=== PATIENT | male | born 1960 | race Caucasian/White ===

== ENCOUNTER 2018-04-28 13:27 | Emergency (ER) | payer SELFPAY ==
[2018-04-28 13:31] VITALS: BP 151/81; PULSE 89; RESP 16; TEMP 37; O2SAT 97
--- NOTE | 2018-04-28 13:35 | W.ED.GENAD ---
Discharge Plan Disposition Patient Disposition: HOME Condition: Stable Discharge Details Chief Complaint: Orthopedic Clinical Impression: Right knee sprain Primary Care Provider: Wenceslao Vega ED Provider: Saturnino Mccloud Home Meds and New Rx's Prescriptions: Continued aspirin [Aspir-81] 81 MG tablet,delayed release (DR/EC) 1 tab PO HS RF: 0 Proventil HFA 6.7 GM HFA aerosol inhaler 2 puff Inhalation Q4H PRN Qty: 3 RF: 4 Flovent HFA 12 GM HFA aerosol inhaler 2 puff Inhalation BID Qty: 3 RF: 4 cholecalciferol (vitamin D3) 1,000 UNIT capsule 1,000 unit PO DAILY RF: 0 furosemide 20 MG tablet 20 mg PO DAILY Qty: 90 RF: 3 pravastatin [Pravachol] 40 MG tablet 1 tab PO DAILY Qty: 90 RF: 4 amitriptyline 50 MG tablet 1 tab PO HS Qty: 90 RF: 3 lorazepam [Ativan] 1 MG tablet 1 mg PO HS Qty: 90 RF: 2 losartan 100 MG tablet 100 mg PO DAILY Qty: 90 RF: 3 escitalopram oxalate [Lexapro] 10 MG tablet 1 tab PO DAILY Qty: 90 RF: 4 hemps seed oil 1,000 mg PO TID RF: 0 metoprolol succinate [Toprol XL] 25 MG tablet extended release 24 hr 25 mg PO DAILY Qty: 90 RF: 3 Lyrica 75 mg capsule 75 mg PO HS Qty: 90 RF: 1 lorazepam 1 mg tablet 1 mg PO HS Qty: 60 RF: 1 docusate sodium [Colace] 100 MG capsule 100 mg PO HS PRN RF: 0 cyclobenzaprine 10 MG tablet 10 mg PO TID PRN (Reason: Muscle Spasm) Qty: 10 RF: 0 ibuprofen 800 MG tablet 800 mg PO TID PRN (Reason: Pain) Qty: 15 RF: 0 melatonin 10 MG tablet 10 mg PO DAILY RF: 0 Discharge Instructions Instructions: Knee Sprain (ED) Referrals: Tony Jacques MD [ [facility] STAFF PHYSICIAN] - Medical Decision Making 57 yo male states a month ago he slipped and twisted his right knee then did similar injury a few days later. Denies hitting his knee or other trauma. HAs had pain since so came here. Denies fevers. Has no swelling or redenses or warmth of the knee to suggest infection. Has pain with palpation over the medial joint line of the right knee with full rom, no swelling and intact distal senation and pulses and no calf pain or leg swelling. Suspect knee sprain but could also be meniscus injury, will have him go to orthopedics for an evaluation as an outpatient. Given lack of falling, is bearing weight do not feel xray indicated given unlikely fx Differential Diagnosis contusion, sprain, meniscus injury HPI General Mode of arrival: ambulatory. Date/Time Provider Initiated Documentation: 04/28/18 13:28. Limitations to Documentation: no limitations. Information obtained by: patient. History of Present Illness 57 year old M presents to the emergency department with the chief complaint of right knee pain, described as moderate, with intensity rated at 4. Quality is described as aching, and is localized to the right and lower extremity. Patient started experiencing this month(s) (1) and it has been constant. Rest improves symptom(s), Movement worsens symptoms . Patient notes no other symptoms.. Patient did receive the following treatments prior to arrival, none Related Data Home Medications Medication Instructions Recorded Confirmed Flovent HFA 2 puff INHALATION BID #3 puff 08/07/12 04/28/18 Proventil HFA 2 puff INHALATION Q4H PRN #3 puff 08/07/12 04/28/18 aspirin [Aspir-81] 1 tab PO HS tab-cap 08/07/12 04/28/18 docusate sodium [Colace] 100 mg PO HS PRN 06/29/14 04/28/18 cyclobenzaprine 10 mg PO TID PRN #10 tab 10/19/16 04/28/18 ibuprofen 800 mg PO TID PRN #15 tablet 10/19/16 04/28/18 melatonin 10 mg PO DAILY 10/19/16 04/28/18 cholecalciferol (vitamin D3) 1,000 unit PO DAILY 03/05/17 04/28/18 furosemide 20 mg PO DAILY #90 tab-cap 03/18/17 04/28/18 pravastatin [Pravachol] 1 tab PO DAILY #90 tab-cap 03/28/17 04/28/18 amitriptyline 1 tab PO HS #90 tab 06/24/17 04/28/18 escitalopram oxalate [Lexapro] 1 tab PO DAILY #90 tab-cap 06/24/17 04/28/18 lorazepam [Ativan] 1 mg PO HS #90 tab 06/24/17 04/28/18 losartan 100 mg PO DAILY #90 tab-cap 06/24/17 04/28/18 Hemps Seed Oil 1,000 mg PO TID 09/02/17 04/28/18 metoprolol succinate [Toprol XL] 25 mg PO DAILY #90 tab-cap 09/02/17 04/28/18 pregabalin 75 mg capsule 75 mg PO HS #90 tab-cap 01/23/18 04/28/18 lorazepam 1 mg tablet 1 mg PO HS #60 tab 04/01/18 04/28/18 Previous Rx's Medication Instructions Recorded cyclobenzaprine 10 mg PO TID PRN #10 tab 10/19/16 ibuprofen 800 mg PO TID PRN #15 tablet 10/19/16 furosemide 20 mg PO DAILY #90 tab-cap 03/18/17 pravastatin [Pravachol] 1 tab PO DAILY #90 tab-cap 03/28/17 amitriptyline 1 tab PO HS #90 tab 06/24/17 escitalopram oxalate [Lexapro] 1 tab PO DAILY #90 tab-cap 06/24/17 lorazepam [Ativan] 1 mg PO HS #90 tab 06/24/17 losartan 100 mg PO DAILY #90 tab-cap 06/24/17 metoprolol succinate [Toprol XL] 25 mg PO DAILY #90 tab-cap 09/02/17 pregabalin 75 mg capsule 75 mg PO HS #90 tab-cap 01/23/18 lorazepam 1 mg tablet 1 mg PO HS #60 tab 04/01/18 Allergies Allergy/AdvReac Type Severity Reaction Status Date / Time adhesive Allergy Severe SKIN RASH Unverified 04/28/18 13:37 Penicillins Allergy Unknown Unverified 04/28/18 13:37 hydrochlorothiazide AdvReac Severe CRAMPING Unverified 04/28/18 13:37 zolpidem AdvReac Severe SLEEP Unverified 04/28/18 13:37 WALKING amlodipine AdvReac Intermediate edema Unverified 04/28/18 13:37 General Stated Complaint: Orthopedic ISAURA: 4 Review of Systems Review of Systems All systems reviewed & are unremarkable except as noted in HPI and below Constitutional Denies chills, Denies fever(s) and Denies weakness Cardiovascular Denies chest pain and Denies dyspnea Respiratory Denies dyspnea Gastrointestinal Denies abdominal pain, Denies nausea and Denies vomiting Musculoskeletal Denies joint swelling Neurologic Denies weakness [facility] Surgical History Jennifer Fundoplication (~2001) resection Family History Mother Diabetes Personal history of malignant neoplasm Father Essential hypertension Heart disease Hypercholesterolemia Stroke Sister No problems noted. Sister No problems noted. Brother No problems noted. Brother No problems noted. Son No problems noted. Grandmother Diabetes Personal history of malignant neoplasm Social History Smoking/Tobacco Use Status: Former Tobacco Use Exam Const General: no acute distress Orientation: alert HENMT Head: normal to inspection Ears: external ears normal General nose exam: external nose normal Mouth: moist mucous membranes Eyes General: appearance normal, both eyes and all related structures Neck Neck: normal visual inspection Resp Effort & Inspection: normal respiratory effort and able to speak in complete sentences Cardio Rate: regular rate Skin General skin exam: no rashes or lesions noted Neuro General: alert and oriented x3 Extrem General: normal to inspection Psych Mental Status: mental status grossly normal Course Vital Signs Temperature 37 C 04/28/18 13:31 Pulse 89 04/28/18 13:31 Respiratory Rate 16 04/28/18 13:31 Blood Pressure 151/81 H 04/28/18 13:31 Pulse Oximetry 97 04/28/18 13:31 Temperature 37 C 04/28/18 13:31 Temperature Source Temporal Artery Scan 04/28/18 13:31 Pulse 89 04/28/18 13:31 Respiratory Rate 16 04/28/18 13:31 Respiratory Effort 04/28/18 13:35 Blood Pressure 151/81 H 04/28/18 13:31 Blood Pressure Position Sitting 04/28/18 13:31 Pulse Oximetry 97 04/28/18 13:31 Oxygen Delivery Method Room Air 04/28/18 13:31 Oxygen Flow Rate 0 04/28/18 13:31 Pain Level 4 04/28/18 13:31
--- NOTE | 2018-04-28 13:46 | ED.GENADUL_ITS ---
Discharge Plan Disposition Patient Disposition: HOME Condition: Stable Discharge Details Chief Complaint: Orthopedic Clinical Impression: Right knee sprain Primary Care Provider: Wenceslao Vega ED Provider: Saturnino Mccloud Home Meds and New Rx's Prescriptions: Continued aspirin [Aspir-81] 81 MG tablet,delayed release (DR/EC) 1 tab PO HS RF: 0 Proventil HFA 6.7 GM HFA aerosol inhaler 2 puff Inhalation Q4H PRN Qty: 3 RF: 4 Flovent HFA 12 GM HFA aerosol inhaler 2 puff Inhalation BID Qty: 3 RF: 4 cholecalciferol (vitamin D3) 1,000 UNIT capsule 1,000 unit PO DAILY RF: 0 furosemide 20 MG tablet 20 mg PO DAILY Qty: 90 RF: 3 pravastatin [Pravachol] 40 MG tablet 1 tab PO DAILY Qty: 90 RF: 4 amitriptyline 50 MG tablet 1 tab PO HS Qty: 90 RF: 3 lorazepam [Ativan] 1 MG tablet 1 mg PO HS Qty: 90 RF: 2 losartan 100 MG tablet 100 mg PO DAILY Qty: 90 RF: 3 escitalopram oxalate [Lexapro] 10 MG tablet 1 tab PO DAILY Qty: 90 RF: 4 hemps seed oil 1,000 mg PO TID RF: 0 metoprolol succinate [Toprol XL] 25 MG tablet extended release 24 hr 25 mg PO DAILY Qty: 90 RF: 3 Lyrica 75 mg capsule 75 mg PO HS Qty: 90 RF: 1 lorazepam 1 mg tablet 1 mg PO HS Qty: 60 RF: 1 docusate sodium [Colace] 100 MG capsule 100 mg PO HS PRN RF: 0 cyclobenzaprine 10 MG tablet 10 mg PO TID PRN (Reason: Muscle Spasm) Qty: 10 RF: 0 ibuprofen 800 MG tablet 800 mg PO TID PRN (Reason: Pain) Qty: 15 RF: 0 melatonin 10 MG tablet 10 mg PO DAILY RF: 0 Discharge Instructions Instructions: Knee Sprain (ED) Referrals: Tony Jacques MD [ [facility] STAFF PHYSICIAN] - Medical Decision Making 57 yo male states a month ago he slipped and twisted his right knee then did similar injury a few days later. Denies hitting his knee or other trauma. HAs had pain since so came here. Denies fevers. Has no swelling or redenses or warmth of the knee to suggest infection. Has pain with palpation over the medial joint line of the right knee with full rom, no swelling and intact distal senation and pulses and no calf pain or leg swelling. Suspect knee sprain but could also be meniscus injury, will have him go to orthopedics for an evaluation as an outpatient. Given lack of falling, is bearing weight do not feel xray indicated given unlikely fx Differential Diagnosis contusion, sprain, meniscus injury HPI General Mode of arrival: ambulatory . Date/Time Provider Initiated Documentation: 04/28/18 13:28 . Limitations to Documentation: no limitations . Information obtained by: patient . History of Present Illness 57 year old M presents to the emergency department with the chief complaint of right knee pain, described as moderate, with intensity rated at 4. Quality is described as aching, and is localized to the right and lower extremity. Patient started experiencing this month(s) (1) and it has been constant. Rest improves symptom(s), Movement worsens symptoms . Patient notes no other symptoms.. Patient did receive the following treatments prior to arrival, none Related Data Home Medications Medication Instructions Recorded Confirmed Flovent HFA 2 puff INHALATION BID #3 puff 08/07/12 04/28/18 Proventil HFA 2 puff INHALATION Q4H PRN #3 puff 08/07/12 04/28/18 aspirin [Aspir-81] 1 tab PO HS tab-cap 08/07/12 04/28/18 docusate sodium [Colace] 100 mg PO HS PRN 06/29/14 04/28/18 cyclobenzaprine 10 mg PO TID PRN #10 tab 10/19/16 04/28/18 ibuprofen 800 mg PO TID PRN #15 tablet 10/19/16 04/28/18 melatonin 10 mg PO DAILY 10/19/16 04/28/18 cholecalciferol (vitamin D3) 1,000 unit PO DAILY 03/05/17 04/28/18 furosemide 20 mg PO DAILY #90 tab-cap 03/18/17 04/28/18 pravastatin [Pravachol] 1 tab PO DAILY #90 tab-cap 03/28/17 04/28/18 amitriptyline 1 tab PO HS #90 tab 06/24/17 04/28/18 escitalopram oxalate [Lexapro] 1 tab PO DAILY #90 tab-cap 06/24/17 04/28/18 lorazepam [Ativan] 1 mg PO HS #90 tab 06/24/17 04/28/18 losartan 100 mg PO DAILY #90 tab-cap 06/24/17 04/28/18 Hemps Seed Oil 1,000 mg PO TID 09/02/17 04/28/18 metoprolol succinate [Toprol XL] 25 mg PO DAILY #90 tab-cap 09/02/17 04/28/18 pregabalin 75 mg capsule 75 mg PO HS #90 tab-cap 01/23/18 04/28/18 lorazepam 1 mg tablet 1 mg PO HS #60 tab 04/01/18 04/28/18 Previous Rx's Medication Instructions Recorded cyclobenzaprine 10 mg PO TID PRN #10 tab 10/19/16 ibuprofen 800 mg PO TID PRN #15 tablet 10/19/16 furosemide 20 mg PO DAILY #90 tab-cap 03/18/17 pravastatin [Pravachol] 1 tab PO DAILY #90 tab-cap 03/28/17 amitriptyline 1 tab PO HS #90 tab 06/24/17 escitalopram oxalate [Lexapro] 1 tab PO DAILY #90 tab-cap 06/24/17 lorazepam [Ativan] 1 mg PO HS #90 tab 06/24/17 losartan 100 mg PO DAILY #90 tab-cap 06/24/17 metoprolol succinate [Toprol XL] 25 mg PO DAILY #90 tab-cap 09/02/17 pregabalin 75 mg capsule 75 mg PO HS #90 tab-cap 01/23/18 lorazepam 1 mg tablet 1 mg PO HS #60 tab 04/01/18 Allergies Allergy/AdvReac Type Severity Reaction Status Date / Time adhesive Allergy Severe SKIN RASH Unverified 04/28/18 13:37 Penicillins Allergy Unknown Unverified 04/28/18 13:37 hydrochlorothiazide AdvReac Severe CRAMPING Unverified 04/28/18 13:37 zolpidem AdvReac Severe SLEEP Unverified 04/28/18 13:37 WALKING amlodipine AdvReac Intermediate edema Unverified 04/28/18 13:37 General Stated Complaint: Orthopedic ISAURA: 4 Review of Systems Review of Systems All systems reviewed & are unremarkable except as noted in HPI and below Constitutional Denies chills, Denies fever(s) and Denies weakness Cardiovascular Denies chest pain and Denies dyspnea Respiratory Denies dyspnea Gastrointestinal Denies abdominal pain, Denies nausea and Denies vomiting Musculoskeletal Denies joint swelling Neurologic Denies weakness [facility] Surgical History Jennifer Fundoplication (~2001) resection Family History Mother Diabetes Personal history of malignant neoplasm Father Essential hypertension Heart disease Hypercholesterolemia Stroke Sister No problems noted. Sister No problems noted. Brother No problems noted. Brother No problems noted. Son No problems noted. Grandmother Diabetes Personal history of malignant neoplasm Social History Smoking/Tobacco Use Status: Former Tobacco Use Exam Const General: no acute distress Orientation: alert HENMT Head: normal to inspection Ears: external ears normal General nose exam: external nose normal Mouth: moist mucous membranes Eyes General: appearance normal, both eyes and all related structures Neck Neck: normal visual inspection Resp Effort & Inspection: normal respiratory effort and able to speak in complete sentences Cardio Rate: regular rate Skin General skin exam: no rashes or lesions noted Neuro General: alert and oriented x3 Extrem General: normal to inspection Psych Mental Status: mental status grossly normal Course Vital Signs Temperature 37 C 04/28/18 13:31 Pulse 89 04/28/18 13:31 Respiratory Rate 16 04/28/18 13:31 Blood Pressure 151/81 H 04/28/18 13:31 Pulse Oximetry 97 04/28/18 13:31 Temperature 37 C 04/28/18 13:31 Temperature Source Temporal Artery Scan 04/28/18 13:31 Pulse 89 04/28/18 13:31 Respiratory Rate 16 04/28/18 13:31 Respiratory Effort 04/28/18 13:35 Blood Pressure 151/81 H 04/28/18 13:31 Blood Pressure Position Sitting 04/28/18 13:31 Pulse Oximetry 97 04/28/18 13:31 Oxygen Delivery Method Room Air 04/28/18 13:31 Oxygen Flow Rate 0 04/28/18 13:31 Pain Level 4 04/28/18 13:31
== END 2018-04-28 13:55 | disposition home or self-care (01) ==
PROVIDERS: Emergency Provider Emergency Medicine; PCP Emergency Medicine
DX: S83.91XA Sprain of unspecified site of right knee, initial encounter (principal); W00.0XXA Fall on same level due to ice and snow, initial encounter
CPT/HCPCS: 99282

== ENCOUNTER 2018-05-13 10:11 | Outpatient (CLI) | payer OTHER, SELFPAY ==
--- NOTE | 2018-05-13 09:41 | DI.RAD_ITS ---
SYMPTOM/DIAGNOSIS: PAIN RIGHT KNEE: AP and lateral weight bearing views were performed. There are mild to moderate degenerative changes of the medial femoral tibial joint. There is mild geovanni- articular spurring and mild joint space loss. There is slight spurring at the articular aspect of the patella. No joint effusion is visible. IMPRESSION: Mild to moderate degenerative changes.
== END 2018-05-13 10:31 ==
PROVIDERS: PCP Emergency Medicine; Visit Provider Physician Assistant Surgical
DX: M25.561 Pain in right knee (principal); M17.11 Unilateral primary osteoarthritis, right knee
CPT/HCPCS: 73560

== ENCOUNTER 2018-05-13 12:07 | Emergency (ER) | payer OTHER, SELFPAY ==
--- NOTE | 2018-05-13 12:12 | NUR.NOTE ---
pt states that he experiences syncopal episodes every time he stands up quickly or coughs to much as a result of theses syncopal episodes PT has fallen to the ground and hit his head syncopal episodes occur several times a week. pt states that he has also been experiencing short term memory loss
[2018-05-13 12:17] VITALS: BP 151/91; PULSE 78; RESP 16; TEMP 37; O2SAT 96
--- NOTE | 2018-05-13 12:32 | DI.CT_ITS ---
SYMPTOMS/DIAGNOSIS: MULTIPLE RECENT FALLS, ? BLEED/STROKE NONCONTRAST HEAD CT: Comparison is made with April,. No intracranial hemorrhage, mass or infarct is seen. There is no evidence of subdural hematoma. No skull fracture or sinus opacification is seen. The ventricles are normal in size. IMPRESSION: Negative head CT. CT OF THE CERVICAL SPINE: No fracture or subluxation is seen. Degenerative disc changes are seen from C3- 4 through C6-7, as well as at C1-2. No paraspinal hematoma is seen. The visualized portions of the lung apices appear clear. No pneumothorax is seen. IMPRESSION: Degenerative changes. No acute abnormality.
--- NOTE | 2018-05-13 12:32 | DI.RAD_ITS ---
SYMPTOMS/DIAGNOSIS: RECENT ASPIRATION OF HAM, ? ASPIRATION PA AND LATERAL CHEST: Comparison is made with April,. The heart size is normal. The lungs are suboptimally inflated on both views but appear clear throughout. No foreign body is visible. IMPRESSION: Negative chest x-ray.
[2018-05-13 12:51] LABS: BE (Venous) 0.2 mmol/L (-3-3); HCO3 (Venous) 24 mmol/L (22-28); O2 Sat (Venous) 99 % (70-80); TCO2 (Venous) 22 mmol/L (22-29); pCO2 (Venous) 36 mm/Hg (34-47); pH (Venous) 7.44 (7.32-7.43); pO2 (Venous) 110 mm/Hg (28-44)
[2018-05-13 12:53] LABS: Abs Immature Grans 0.02 k/cumm (0.0-0.09); Absolute Basophil Count 0.06 k/cumm (0.0-0.2); Absolute Eosinophil Count 0.18 k/cumm (0.0-0.7); Absolute Lymphocyte Count 1.17 k/cumm (1.2-3.4); Absolute Monocyte Count 0.41 k/cumm (0.11-0.7); Absolute Neutrophil Count 3.87 k/cumm (1.2-6.7); Basophils % 1.1; Eosinophils % 3.2; HCT 37.8 % (40.0-50.0); HGB 12.9 g/dL (13.5-17.5); Immature Grans % 0.4; Lymphocytes % 20.5; Mean Corp. HGB Concentration 34.1 g/dL (32.0-36.0); Mean Corpuscular Hemoglobin 37.2 pg (27.0-33.0); Mean Corpuscular Volume 108.9 fL (80-95); Mean Platelet Volume 9.2 fL (8.0-11.0); Monocytes % 7.2; Neutrophils % 67.6; Platelet Count 225 x1000/uL (130-400); RBC 3.47 m/cumm (4.50-6.00); RBC Distribution Width 13.8 % (11.8-14.1); White Blood Cell Count 5.71 k/cumm (4.4-10.8)
[2018-05-13 13:02] LABS: Ammonia 33 umol/L (11-32)
[2018-05-13 13:08] LABS: ALT 121 U/L (12-78); AST 147 U/L (15-37); Albumin 3.5 g/dL (3.4-5.0); Alkaline Phosphatase 113 U/L (46-116); Anion Gap 13.4 mmol/L (3-11); BUN 10 mg/dL (7-18); Bilirubin, Total 0.9 mg/dL (0.2-1.0); CO2 23.6 mmol/L (21.0-32.0); CREATININE 1.27 mg/dL (0.70-1.30); Calcium 8.7 mg/dL (8.5-10.1); Chloride 103 mmol/L (98-107); Estimated GFR 58.05 (mL/min/1.73m2); Glucose 165 mg/dL (70-100); Magnesium 1.6 mg/dL (1.8-2.4); Potassium 3.8 mmol/L (3.5-5.1); Sodium 140 mmol/L (136-145); Total Protein 7.8 g/dL (6.4-8.2)
[2018-05-13 13:10] VITALS: BP 149/88; PULSE 80; RESP 18; O2SAT 97
[2018-05-13 13:13] LABS: Troponin I < 0.02 ng/mL (0.00-0.06)
[2018-05-13] MEDS: Magnesium Oxide 400 MG TAB 800 MG PO (13:25)
[2018-05-13 13:27] VITALS: BP 152/74; PULSE 90; RESP 18; O2SAT 95
--- NOTE | 2018-05-13 13:28 | ED.GENADUL_ITS ---
Discharge Plan Disposition Patient Disposition: HOME Condition: Good Discharge Details Chief Complaint: Dizzy/Sync Clinical Impression: Recurrent syncope Primary Care Provider: Wenceslao Vega ED Provider: Mane Juan Home Meds and New Rx's Prescriptions: No Action meloxicam [Mobic] 15 mg tablet 15 mg PO DAILY RF: 0 aspirin [Aspir-81] 81 MG tablet,delayed release (DR/EC) 1 tab PO HS RF: 0 Proventil HFA 6.7 GM HFA aerosol inhaler 2 puff Inhalation Q4H PRN Qty: 3 RF: 4 Flovent HFA 12 GM HFA aerosol inhaler 2 puff Inhalation BID Qty: 3 RF: 4 cholecalciferol (vitamin D3) 1,000 UNIT capsule 1,000 unit PO DAILY RF: 0 furosemide 20 MG tablet 20 mg PO DAILY Qty: 90 RF: 3 pravastatin [Pravachol] 40 MG tablet 1 tab PO DAILY Qty: 90 RF: 4 amitriptyline 50 MG tablet 1 tab PO HS Qty: 90 RF: 3 lorazepam [Ativan] 1 MG tablet 1 mg PO HS Qty: 90 RF: 2 losartan 100 MG tablet 100 mg PO DAILY Qty: 90 RF: 3 escitalopram oxalate [Lexapro] 10 MG tablet 1 tab PO DAILY Qty: 90 RF: 4 hemps seed oil 1,000 mg PO TID RF: 0 metoprolol succinate [Toprol XL] 25 MG tablet extended release 24 hr 25 mg PO DAILY Qty: 90 RF: 3 Lyrica 75 mg capsule 75 mg PO HS Qty: 90 RF: 1 docusate sodium [Colace] 100 MG capsule 100 mg PO HS PRN RF: 0 ibuprofen 800 MG tablet 800 mg PO TID PRN (Reason: Pain) Qty: 15 RF: 0 melatonin 10 MG tablet 10 mg PO DAILY RF: 0 Discharge Instructions Instructions: Syncope (ED) Additional Instructions: If you notice any worsening of your symptoms, or any new symptoms such as vomiting, diarrhea, fever, chills, shortness of breath, chest pain, numbness, weakness, or fainting , please return immediately to the emergency department for reevaluation. Please follow up with your primary care provider as soon as possible for reassessment and reevaluation. As always, it was a pleasure participating in your medical care today. Your cardiology appointment is 05/18 at 9:45 AM at [facility]. You should not drive, operate machinery, climb heights (such as a ladder), swim, or bathe alone or do anything else which could be dangerous if you would have another episode of fainting. Please abide by this for the next 6 months or until cleared by a physician. Referrals: Wenceslao Vega, [Primary Care Provider] - Medical Decision Making This is a very pleasant 57-year-old male with a past medical history of chronic alcoholism, hypertension, high cholesterol, and neurocardiogenic syncope, who presents for evaluation of increased episodes of syncope, falls, short-term memory loss. He was sent by his PCP for further evaluation. Physical exam demonstrates no concerning neurologic deficits aside for right-si ded tongue deviation. Family is uncertain if this is new or old. He did have an episode where he choked on a piece of ham 4 days ago and sought no medical attention, over his lung sounds are normal and his vital signs are reassuring. 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 I feel the patient would benefit from CT of the head, further cardiac exam, and laboratory workup. The patient does look very well at this time, if his workup is benign I feel that he may be able to be discharged if we are able to get prompt cardiology follow-up. 3:54 PM Patient's laboratory workup has returned, no significant lab abnormalities are noted except for a mildly decreased magnesium. The patient's potassium and calcium were within normal limits. AST and ALT are slightly elevated. However they appear to be near his chronic baseline. Ammonia is normal, troponin is normal, EKG is benign. VBG demonstrates no significant increase in CO2 level. CT scan of the head neck is negative for any acute process, chest x-rays negative for any acute process. The patient is requesting discharge home rather than admission. I did contact Dr. Peng, discussed the case personally with him including EKG findings and laboratory workup. He agrees that the patient needs to be closely followed. We will add a zeo patch, schedule an outpatient echocardiogram, and prompt outpatient follow-up next week with cardiology at [facility]. I have extensively reviewed the treatment plan and discharge instructions with the patient. I have addressed all patient concerns at this time. The patient was made aware of what symptoms to monitor for that would warrant a return to the emergency department. Discussed the plan with the patient, they demonstrate verbal understanding and agreement with our assessment and plan at this time. EKG 12: 36 Rate 75, sinus rhythm, UT 178, QTc 458, QRS 108, no ST elevations or depressions, no significant T wave inversions. No significant Q waves. IMPRESSION: Negative head CT. CT OF THE CERVICAL SPINE: No fracture or subluxation is seen. Degenerative disc changes are seen from C3- 4 through C6-7, as well as at C1-2. No paraspinal hematoma is seen. The visualized portions of the lung apices appear clear. No pneumothorax is seen. IMPRESSION: Degenerative changes. No acute abnormality. PA AND LATERAL CHEST: Comparison is made with April,. The heart size is normal. The lungs are suboptimally inflated on both views but appear clear throughout. No foreign body is visible. IMPRESSION: Negative chest x-ray. HPI General Date/Time Provider Initiated Documentation: 05/13/18 12:32 . HPI Narrative: This is a 57-year-old male with a past medical history of daily alcohol use, hypertension, high cholesterol, as well as neurocardiogenic syncope diagnosed in 2011 who presents today for evaluation of multiple syncopal episodes. He was sent in by his primary care provider today. Patient states that over the last 2 weeks he has been having multiple episodes of syncope, they only occur when he moves his head quickly, when he coughs, or when he stands up quickly. They are never at rest while doing nothing. He denies any associated chest pain or shortness of breath. He did have a notable fall 2 weeks ago secondary to syncope, and since then has been having worsening short-term memory problems. He is not on any blood thinners. Of note 4 days ago the patient was eating ham at dinner, and choked on this, and required the Heimlich to expectorate it. He had no problems after that initial event, but did not go and seek any medical attention. Additionally he also had a notable fall after that secondary to syncope and his memory has continued to become more concerning. Patient denies any other complaints, no medications, or any other modifying factors at this time. Related Data Home Medications Medication Instructions Recorded Confirmed Flovent HFA 2 puff INHALATION BID #3 puff 08/07/12 05/13/18 Proventil HFA 2 puff INHALATION Q4H PRN #3 puff 08/07/12 05/13/18 aspirin [Aspir-81] 1 tab PO HS tab-cap 08/07/12 05/13/18 docusate sodium [Colace] 100 mg PO HS PRN 06/29/14 05/13/18 ibuprofen 800 mg PO TID PRN #15 tab 10/19/16 05/13/18 melatonin 10 mg PO DAILY 10/19/16 05/13/18 cholecalciferol (vitamin D3) 1,000 unit PO DAILY 03/05/17 05/13/18 furosemide 20 mg PO DAILY #90 tab-cap 03/18/17 05/13/18 pravastatin [Pravachol] 1 tab PO DAILY #90 tab-cap 03/28/17 05/13/18 amitriptyline 1 tab PO HS #90 tab 06/24/17 05/13/18 escitalopram oxalate [Lexapro] 1 tab PO DAILY #90 tab-cap 06/24/17 05/13/18 lorazepam [Ativan] 1 mg PO HS #90 tab 06/24/17 05/13/18 losartan 100 mg PO DAILY #90 tab-cap 06/24/17 05/13/18 Hemps Seed Oil 1,000 mg PO TID 09/02/17 05/13/18 metoprolol succinate [Toprol XL] 25 mg PO DAILY #90 tab-cap 09/02/17 05/13/18 pregabalin 75 mg capsule 75 mg PO HS #90 tab-cap 01/23/18 05/13/18 meloxicam 15 mg tablet 15 mg PO DAILY 05/13/18 05/13/18 Previous Rx's Medication Instructions Recorded ibuprofen 800 mg PO TID PRN #15 tab 10/19/16 furosemide 20 mg PO DAILY #90 tab-cap 03/18/17 pravastatin [Pravachol] 1 tab PO DAILY #90 tab-cap 03/28/17 amitriptyline 1 tab PO HS #90 tab 06/24/17 escitalopram oxalate [Lexapro] 1 tab PO DAILY #90 tab-cap 06/24/17 lorazepam [Ativan] 1 mg PO HS #90 tab 06/24/17 losartan 100 mg PO DAILY #90 tab-cap 06/24/17 metoprolol succinate [Toprol XL] 25 mg PO DAILY #90 tab-cap 09/02/17 pregabalin 75 mg capsule 75 mg PO HS #90 tab-cap 01/23/18 Allergies Allergy/AdvReac Type Severity Reaction Status Date / Time adhesive Allergy Severe SKIN RASH Verified 05/13/18 12:18 Penicillins Allergy Unknown Verified 05/13/18 12:18 hydrochlorothiazide AdvReac Severe CRAMPING Verified 05/13/18 12:18 zolpidem AdvReac Severe SLEEP Verified 05/13/18 12:18 WALKING amlodipine AdvReac Intermediate edema Verified 05/13/18 12:18 General Stated Complaint: Dizzy/Sync ISAURA: 3 Review of Systems Review of Systems All systems reviewed & are unremarkable except as noted in HPI and below PFSH Family History Mother Diabetes Personal history of malignant neoplasm Father Essential hypertension Heart disease Hypercholesterolemia Stroke Sister No problems noted. Sister No problems noted. Brother No problems noted. Brother No problems noted. Son No problems noted. Grandmother Diabetes Personal history of malignant neoplasm Social History Smoking/Tobacco Use Status: Former Tobacco Use Exam Narrative Exam Narrative: 1.Const: Well-nourished, Well-developed, appearing stated age 2.Eyes: PERRL, no conjunctival injection, and symmetrical lids. 3.ENT: Atraumatic external nose and ears. Moist MM. Neck: Symmetric, trachea midline, No thyromegaly. 4.CVS: +S1/S2, No murmurs or gallops. Peripheral pulses 2+ and equal in all extremities. Brisk capillary refill in all extremities. 5.RESP: Unlabored respiratory effort. Clear to auscultation bilaterally. No wheezes rales or rhonchi 6.GI: Soft, Nontender/Nondistended, No hepatosplenomegaly. No guarding or rebound. 7.MSK: Normocephalic/Atraumatic, Extremities w/o deformity or ttp No cyanosis or clubbing, Normal movement of all extremities 8.Skin: Warm, Dry. No rashes or lesions. 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 Sensation grossly intact. All 6 cardinal planes of vision are fully intact. No evidence of rotatory or vertical nystagmus. The patient demonstrated a normal [id number], good dexterity. There was no evidence of dysdiadochokinesia. Patient was able to ambulate without difficulty. There was no wide-based gait. Romberg, and lxyi-ei-jehl are both normal on testing. Sensation was intact bilaterally as well as muscle strength bilaterally for all extremities. Patient was able to verbalize butter cup with no slurring, or miss pronunciation. 10.Psych: (AAO) x3. Appropriate mood and affect Course Vital Signs Temperature 37 C 05/13/18 12:17 Pulse 78 05/13/18 12:17 Respiratory Rate 16 05/13/18 12:17 Blood Pressure 151/91 H 05/13/18 12:17 Pulse Oximetry 96 05/13/18 12:17 Temperature 37 C 05/13/18 12:17 Temperature Source Skin 05/13/18 12:17 Pulse 80 05/13/18 13:10 Respiratory Rate 18 05/13/18 13:10 Respiratory Effort 05/13/18 12:22 Blood Pressure 149/88 H 05/13/18 13:10 Blood Pressure Position Supine 05/13/18 12:17 Pulse Oximetry 97 05/13/18 13:10 Oxygen Delivery Method Room Air 05/13/18 13:10 Oxygen Flow Rate 0 05/13/18 13:10 Pain Level 2 05/13/18 12:17 Lab/Test Results Lab/Test Results: Laboratory Tests Range/Units 05/13/18 05/13/18 05/13/18 12:45 12:45 12:45 WBC (4.4-10.8) k/cumm 5.71 RBC (4.50-6.00) m/cumm 3.47 L Hgb (13.5-17.5) g/dL 12.9 L Hct (40.0-50.0) % 37.8 L MCV (80-95) fL 108.9 H MCH (27.0-33.0) pg 37.2 H MCHC (32.0-36.0) g/dL 34.1 RDW (11.8-14.1) % 13.8 Plt Count (130-400) x1000/uL 225 MPV (8.0-11.0) fL 9.2 Immature Gran % 0.4 Neutrophils % 67.6 Lymphocytes % 20.5 Monocytes % 7.2 Eosinophils % 3.2 Basophils % 1.1 Absolute Neutrophils (1.2-6.7) k/cumm 3.87 Absolute Lymphocytes (1.2-3.4) k/cumm 1.17 L Absolute Monocytes (0.11-0.7) k/cumm 0.41 Absolute Eosinophils (0.0-0.7) k/cumm 0.18 Absolute Basophils (0.0-0.2) k/cumm 0.06 VBG pH (7.32-7.43) VBG pCO2 (34-47) mm/Hg VBG pO2 (28-44) mm/Hg VBG HCO3 (22-28) mmol/L VBG Total CO2 (22-29) mmol/L VBG O2 Saturation (70-80) % VBG Base Excess (-3-3) mmol/L Sodium (136-145) mmol/L 140 Potassium (3.5-5.1) mmol/L 3.8 Chloride (98-107) mmol/L 103 Carbon Dioxide (21.0-32.0) mmol/L 23.6 Anion Gap (3-11) mmol/L 13.4 H BUN (7-18) mg/dL 10 Creatinine (0.70-1.30) mg/dL 1.27 Estimated GFR/1.73 m2 (mL/min/1.73m2) 58.05 Glucose (70-100) mg/dL 165 H Calcium (8.5-10.1) mg/dL 8.7 Magnesium (1.8-2.4) mg/dL 1.6 L Total Bilirubin (0.2-1.0) mg/dL 0.9 AST (15-37) U/L 147 H ALT (12-78) U/L 121 H Alkaline Phosphatase (46-116) U/L 113 Ammonia (11-32) umol/L 33 H Troponin I (0.00-0.06) ng/mL < 0.02 Total Protein (6.4-8.2) g/dL 7.8 Albumin (3.4-5.0) g/dL 3.5 Range/Units 05/13/18 12:45 WBC (4.4-10.8) k/cumm RBC (4.50-6.00) m/cumm Hgb (13.5-17.5) g/dL Hct (40.0-50.0) % MCV (80-95) fL MCH (27.0-33.0) pg MCHC (32.0-36.0) g/dL RDW (11.8-14.1) % Plt Count (130-400) x1000/uL MPV (8.0-11.0) fL Immature Gran % Neutrophils % Lymphocytes % Monocytes % Eosinophils % Basophils % Absolute Neutrophils (1.2-6.7) k/cumm Absolute Lymphocytes (1.2-3.4) k/cumm Absolute Monocytes (0.11-0.7) k/cumm Absolute Eosinophils (0.0-0.7) k/cumm Absolute Basophils (0.0-0.2) k/cumm VBG pH (7.32-7.43) 7.44 H VBG pCO2 (34-47) mm/Hg 36 VBG pO2 (28-44) mm/Hg 110 H VBG HCO3 (22-28) mmol/L 24 VBG Total CO2 (22-29) mmol/L 22 VBG O2 Saturation (70-80) % 99 H VBG Base Excess (-3-3) mmol/L 0.2 Sodium (136-145) mmol/L Potassium (3.5-5.1) mmol/L Chloride (98-107) mmol/L Carbon Dioxide (21.0-32.0) mmol/L Anion Gap (3-11) mmol/L BUN (7-18) mg/dL Creatinine (0.70-1.30) mg/dL Estimated GFR/1.73 m2 (mL/min/1.73m2) Glucose (70-100) mg/dL Calcium (8.5-10.1) mg/dL Magnesium (1.8-2.4) mg/dL Total Bilirubin (0.2-1.0) mg/dL AST (15-37) U/L ALT (12-78) U/L Alkaline Phosphatase (46-116) U/L Ammonia (11-32) umol/L Troponin I (0.00-0.06) ng/mL Total Protein (6.4-8.2) g/dL Albumin (3.4-5.0) g/dL
--- NOTE | 2018-05-13 15:07 | NUR.NOTE ---
Nursing Note: Resting in bed, at bedside. no acute changes. will continue to monitor.
[2018-05-13 15:11] VITALS: BP 161/103; PULSE 81; RESP 18; O2SAT 96
--- NOTE | 2018-05-13 15:33 | PDOC.ERCMPRO ---
Care Management Progress Note 05/13-Dr. Juan requested assistance with a cardiology f/u at [facility] (Dr. Juan has spoken with Dr. Hoffman) next week, an outpatient echo, and a zio patch. Echo form completed and faxed to radiology. Spoke with Tamanna in radiology and she has scheduled Wilson for tomorrow, , 05/14 at 0715. Called Cariology at [facility]. Patient was scheduled for Friday, 05/18 at 0945 with Monica Sainz. Zio patch order completed and signed by Dr. Juan. RT called and Bill came to the ED. He will place the zio patch. Dr. Juan aware of the above. Patient given appt card for [facility] and copy of radiology time.
--- NOTE | 2018-05-13 15:40 | CMPROGNOTE_ITS ---
Care Management Progress Note 05/13-Dr. Juan requested assistance with a cardiology f/u at [facility] (Dr. Juan has spoken with Dr. Hoffman) next week, an outpatient echo, and a zio patch. Echo form completed and faxed to radiology. Spoke with Tamanna in radiology and she has scheduled Wilson for tomorrow, , 05/14 at 0715. Called Cariology at [facility]. Patient was scheduled for Friday, 05/18 at 0945 with Monica Sainz. Zio patch order completed and signed by Dr. Juan. RT called and Bill came to the ED. He will place the zio patch. Dr. Juan aware of the above. Patient given appt card for [facility] and copy of radiology time.
--- NOTE | 2018-06-08 08:04 | ZIOP_ITS ---
ZIO PATCH [employer] REPORT DATE OF DICTATION June 06, 2018 INDICATION Syncope and collapse. PRESCRIBING CLINICIAN Elpidio Hill M.D. REFERRING PHYSICIAN Wenceslao Vega D.O. ENROLLMENT 05/13/2018 - 05/21/2018 FINDINGS 1. Baseline sinus rhythm, 53-151 beats per minute, average 83 beats per minute. 2. Rare PAC, less than 1%, No SVT, no AF. 3. Rare PVC, less than 1%, no VT. 4. No pauses. 5. 1 trigger event with sinus rhythm, 83 beats per minute. 6. No symptoms recorded. Ana Shine M.D. TIANNA/john T- 06/08/2018 CPT 0298T
== END 2018-05-13 16:10 | disposition home or self-care (01) ==
PROVIDERS: Emergency Provider Student in an Organized Health Care Education/Training Program; PCP Emergency Medicine
DX: R55 Syncope and collapse (principal); R29.6 Repeated falls; R41.3 Other amnesia; I10 Essential (primary) hypertension
CPT/HCPCS: 36415; 80053; 82805; 93005; 93225; 99285; 70450; 71046; 72125; 82140; 83735; 84484; 85025; 93010

== ENCOUNTER 2018-05-14 07:09 | Outpatient (CLI) | payer OTHER, SELFPAY ==
--- NOTE | 2018-05-14 07:30 | MERGE_ITS ---
*[facility]* *[facility]* [address] [place] [address] Date of study: 05/14/2018 Transthoracic Echocardiography M-mode, complete 2D, complete spectral Doppler, and color Doppler *STUDY CONCLUSIONS* Impressions: Low normal LVEF, mild RV dilatation, no significant valvular abnormalities. Summary: 1. Left ventricle: The cavity size was normal. There was mild focal basal hypertrophy of the septum. Systolic function was at the lower limits of normal. The estimated ejection fraction was 50-55%. Wall motion was normal; there were no regional wall motion abnormalities. 2. Mitral valve: There was mild regurgitation. 3. Right ventricle: The cavity size was mildly dilated. Wall thickness was normal. Systolic function was normal. 4. Atrial septum: There was increased thickness of the septum, consistent with lipomatous hypertrophy. 5. Pulmonary arteries: Pulmonary systolic pressure was within the normal range. *PATIENT PRESENTATION* Height: 170.2cm ((67in) ) S/D Pressure: 145 / 79 Weight: 96kg ((211.2lb) ) BSA: 2.16m^2 Test start time: 07:45 AM. Test stop time: 08:45 AM. PERFORMING Unknown REFERRING Mickey Hoffman PERFORMING [facility] EDUCATION COURSES SALES REPRESENTATIVE RT Mara (R)(CT), [facility] CONSULTING Mane Juan Joshua R REFERRING Mane Juan *PROCEDURE DATA* Procedure information: The patient was identified by two identifiers. This study was interpreted by [facility]. Pertinent images and digital data are archived for permanent storage and are available for subsequent review. Comparison was made to the study of 03/20/2011. Study status: Routine. Transthoracic echocardiography. M-mode, complete 2D, complete spectral Doppler, and color Doppler. A Transthoracic Echocardiogram was performed. Scanning was performed from the parasternal, apical, subcostal, and suprasternal notch acoustic windows. Images were obtained using an [id number] cardiac ultrasound machine. Image quality was fair. Study completion: The patient tolerated the procedure well. History: PMH: Syncope, dizziness. *CARDIAC ANATOMY* Left ventricle: The cavity size was normal. There was mild focal basal hypertrophy of the septum. Systolic function was at the lower limits of normal. The estimated ejection fraction was 50-55%. Wall motion was normal; there were no regional wall motion abnormalities. Aortic valve: Trileaflet; normal thickness leaflets. Mobility was not restricted. Doppler: Transvalvular velocity was within the normal range. There was no stenosis. There was no significant regurgitation. VTI ratio of LVOT to aortic valve: 0.74. Valve area (VTI): 3cm^2. Indexed valve area (VTI): 1.4cm^2/m^2. Peak velocity ratio of LVOT to aortic valve: 0.67. Valve area (Vmax): 2.7cm^2. Indexed valve area (Vmax): 1.3cm^2/m^2. Mean velocity ratio of LVOT to aortic valve: 0.72. Valve area (Vmean): 2.9cm^2. Indexed valve area (Vmean): 1.3cm^2/m^2. Mean gradient (S): 3.7mm Hg. Peak gradient (S): 6.4mm Hg. Aorta: Aortic root: The aortic root was at upper normal limits. Ascending aorta: The ascending aorta was normal in size. Aortic arch: The aortic arch was normal in size. Mitral valve: Mildly thickened leaflets. Mobility was not restricted. Doppler: Transvalvular velocity was within the normal range. There was no evidence for stenosis. There was mild regurgitation. Valve area by pressure half-time: 3.6cm^2. Indexed valve area by pressure half-time: 1.6cm^2/m^2. Peak gradient (D): 2.5mm Hg. Left atrium: The atrium was at the upper limits of normal in size. Atrial septum: There was increased thickness of the septum, consistent with lipomatous hypertrophy. Right ventricle: The cavity size was mildly dilated. Wall thickness was normal. Systolic function was normal. Pulmonic valve: Poorly visualized. Doppler: Transvalvular velocity was within the normal range. There was no evidence for stenosis. There was no significant regurgitation. Peak gradient (S): 3.6mm Hg. Tricuspid valve: Structurally normal valve. Doppler: Transvalvular velocity was within the normal range. There was no evidence for stenosis. There was no significant regurgitation. Pulmonary artery: Poorly visualized. Pulmonary systolic pressure was within the normal range. Right atrium: The atrium was normal in size. Pericardium: There was no pericardial effusion. Systemic veins: Inferior vena cava: Poorly visualized. The vessel was mildly dilated. Baseline ECG: Normal sinus rhythm. Measurements Left ventricle Value Reference LV ID, ED, PLAX 4.8 cm 3.5 - 6.0 LV ID, ES, PLAX 3.5 cm 2.1 - 4.0 LV PW thickness, ED, PLAX 0.9 cm LV end-diastolic volume, 1-p A2C 97 ml LV ejection fraction, 1-p A2C 49 % LV end-diastolic volume, 1-p A4C 107 ml LV ejection fraction, 1-p A4C 52 % LV e', lateral 0.084 m/sec LV E/e', lateral 10 LV e', medial 0.079 m/sec LV E/e', medial 10 LV e', average 0.082 m/sec LV E/e', average 10 Ventricular septum Value Reference IVS thickness, ED, PLAX 1.2 cm LVOT Value Reference LVOT ID, A-P 2.3 cm LVOT area 4.1 cm^2 LVOT peak velocity, S 0.85 m/sec LVOT mean velocity, S 0.67 m/sec LVOT VTI, S 18.6 cm LVOT peak gradient, S 2.9 mm Hg LVOT mean gradient, S 1.9 mm Hg Stroke volume (SV), LVOT DP 75 ml Stroke index (SV/bsa), LVOT DP 35 ml/m^2 Aortic valve Value Reference Aortic valve peak velocity, S 1.3 m/sec Aortic valve mean velocity, S 0.94 m/sec Aortic valve VTI, S 25.0 cm Aortic mean gradient, S 3.7 mm Hg Aortic peak gradient, S 6.4 mm Hg VTI ratio, LVOT/AV 0.74 Aortic valve area, VTI 3 cm^2 Velocity ratio, peak, LVOT/AV 0.67 Aortic valve area, peak velocity 2.7 cm^2 Velocity ratio, mean, LVOT/AV 0.72 Aortic valve area, mean velocity 2.9 cm^2 Aortic valve area/bsa, mean velocity 1.3 cm^2/m^2 Aorta Value Reference Aortic root ID, ED 3.8 cm Ascending aorta ID, A-P, S 3.5 cm Aortic arch ID, [id number] 2.9 cm Left atrium Value Reference LA ID, A-P, ES 4.5 cm LA ID/bsa, A-P 2.1 cm/m^2 <=2.2 LA area, ES, A4C 20.2 cm^2 8.8 - 23.4 LA area, ES, A2C 17 cm^2 LA volume/bsa, ES, 1-p A4C 28 ml/m^2 LA volume, ES, 2-p 56 ml LA volume/bsa, ES, 2-p 26 ml/m^2 LA/aortic root ratio 1.18 Mitral valve Value Reference Mitral E-wave peak velocity 0.8 m/sec Mitral A-wave peak velocity 0.78 m/sec Mitral deceleration time 214 ms 150 - 230 Mitral pressure half-time 62 ms Mitral peak gradient, D 2.5 mm Hg Mitral E/A ratio, peak 1.02 Mitral valve area, PHT, DP 3.6 cm^2 Pulmonary veins Value Reference Pulmonary vein peak velocity, S 0.66 m/sec Pulmonary vein peak velocity, D 0.47 m/sec Pulmonary vein velocity ratio, peak, 1.43 S/D Pulmonary vein A-wave reversal peak 0.31 m/sec velocity Pulmonary vein A-wave reversal 106 ms duration Pulmonary arteries Value Reference PA pressure, S, DP 26 mm Hg <=30 Tricuspid valve Value Reference Tricuspid regurg peak velocity 2.2 m/sec Tricuspid peak RV-RA gradient 19.9 mm Hg Right atrium Value Reference RA area, ES, A4C 12.9 cm^2 8.3 - 19.5 Systemic veins Value Reference Estimated CVP 10 mm Hg Right ventricle Value Reference RV pressure, S, DP 30 mm Hg <=30 Pulmonic valve Value Reference Pulmonic peak gradient, S 3.6 mm Hg Legend: (L) and (H) sahara values outside specified reference range. I have personally reviewed the images and have reviewed and edited the reported findings. Electronically signed by Ana Shine 05/15/2018 21:15
== END 2018-05-14 07:29 ==
PROVIDERS: PCP Emergency Medicine; Visit Provider Student in an Organized Health Care Education/Training Program
DX: R55 Syncope and collapse (principal); R42 Dizziness and giddiness; I34.0 Nonrheumatic mitral (valve) insufficiency; I50.1 Left ventricular failure, unspecified; I10 Essential (primary) hypertension
CPT/HCPCS: 93306

== ENCOUNTER 2018-06-19 09:37 | Outpatient (CLI) | payer OTHER, SELFPAY ==
[2018-06-19 13:52] LABS: Abs Immature Grans 0.04 k/cumm (0.0-0.09); Absolute Basophil Count 0.06 k/cumm (0.0-0.2); Absolute Eosinophil Count 0.23 k/cumm (0.0-0.7); Absolute Lymphocyte Count 1.58 k/cumm (1.2-3.4); Absolute Monocyte Count 0.64 k/cumm (0.11-0.7); Absolute Neutrophil Count 3.55 k/cumm (1.2-6.7); Eosinophils % 3.8; HCT 38.8 % (40.0-50.0); HGB 13.5 g/dL (13.5-17.5); Immature Grans % 0.7; Lymphocytes % 25.9; Mean Corp. HGB Concentration 34.8 g/dL (32.0-36.0); Mean Corpuscular Volume 109.3 fL (80-95); Mean Platelet Volume 10.1 fL (8.0-11.0); Monocytes % 10.5; Neutrophils % 58.1; Platelet Count 274 x1000/uL (130-400); RBC 3.55 m/cumm (4.50-6.00); RBC Distribution Width 13.7 % (11.8-14.1)
[2018-06-19 14:44] LABS: Diff Comment RBC Morph Reviewed; Macrocytosis 1+
[2018-06-19 14:45] LABS: Polychromasia Present
[2018-06-19 15:07] LABS: ALT 160 U/L (12-78); AST 235 U/L (15-37); Albumin 4.2 g/dL (3.4-5.0); Alkaline Phosphatase 127 U/L (46-116); Anion Gap 13.5 mmol/L (3-11); BUN 11 mg/dL (7-18); Bilirubin, Total 1.3 mg/dL (0.2-1.0); CO2 23.5 mmol/L (21.0-32.0); CREATININE 0.91 mg/dL (0.70-1.30); Calcium 9.4 mg/dL (8.5-10.1); Chloride 101 mmol/L (98-107); Glucose 130 mg/dL (70-100); Potassium 3.9 mmol/L (3.5-5.1); Sodium 138 mmol/L (136-145); TSH 1.33 uIU/mL (0.358-3.74)
[2018-06-19 16:42] LABS: GGT 773 U/L (15-85)
[2018-06-19 18:51] LABS: Hemoglobin A1C 6.8 % (4.5-6.2)
== END 2018-06-19 09:57 ==
PROVIDERS: PCP Emergency Medicine; Visit Provider Emergency Medicine
DX: R55 Syncope and collapse (principal); E03.9 Hypothyroidism, unspecified; E11.9 Type 2 diabetes mellitus without complications
CPT/HCPCS: 36415; 80053; 82977; 83036; 84443; 85025

== ENCOUNTER 2018-07-03 01:41 | Outpatient (CLI) | payer OTHER, SELFPAY ==
--- NOTE | 2018-07-03 09:42 | DI.CT_ITS ---
SYMPTOMS/DIAGNOSIS: ELEVATED LFT'S, HEPATITIS, INFLAMMATORY LIVER DISEASE, K75.9 CT SCAN OF THE ABDOMEN: Pre and post contrast CT scan of the abdomen was performed. Oral contrast was administered. There are no priors for comparison. There is fatty infiltration of the liver. There is no evidence of nephrolithiasis or hydronephrosis on the noncontrast examination. Following contrast administration CT scan of the abdomen was performed. No acute findings are seen in the lung bases. The liver shows homogeneous enhancement. No evidence of suspicious hepatic mass is seen. The portal, superior mesenteric and splenic veins are patent. The gallbladder is negative. There is no biliary ductal dilatation. The pancreas and peripancreatic soft tissues are unremarkable as are the spleen and adrenal glands. The kidneys show normal and symmetric enhancement. Note is made of a simple cyst on the right kidney. No solid renal mass or obstruction is identified. There is mild atherosclerosis of the abdominal aorta but no aneurysmal dilatation is seen. No significant abdominal adenopathy, ascites or pneumoperitoneum is present. There is a small hiatal hernia present. The remainder of the bowel is unremarkable. Mild degenerative changes are seen in the spine. IMPRESSION: Hepatic steatosis.
[2018-07-03] MEDS: Omnipaque 350 MG/ML 100 ML BTL IV (11:24)
[2018-07-03] MEDS: Omnipaque 350 MG/ML 50 ML BTL PO (11:25)
[2018-07-03] MEDS: Normal Saline Flush 10 ML SYR IVP (11:26)
== END 2018-07-03 02:01 ==
PROVIDERS: PCP Emergency Medicine; Visit Provider Emergency Medicine
DX: R74.8 Abnormal levels of other serum enzymes (principal); K76.0 Fatty (change of) liver, not elsewhere classified
CPT/HCPCS: 74170; J3490; Q9967

== ENCOUNTER 2018-10-07 10:37 | Outpatient (CLI) | payer OTHER, SELFPAY ==
[2018-10-07 11:51] LABS: Prothrombin Time 9.9 sec (9.3-11.0)
[2018-10-07 12:28] LABS: ALT 57 U/L (12-78); AST 29 U/L (15-37); Albumin 4.2 g/dL (3.4-5.0); Alkaline Phosphatase 117 U/L (46-116); Bilirubin, Direct 0.12 mg/dL (0.00-0.20); Bilirubin, Total 0.6 mg/dL (0.2-1.0); Magnesium 2.2 mg/dL (1.8-2.4); Total Protein 7.6 g/dL (6.4-8.2)
[2018-10-08 12:51] LABS: Hepatitis A Antibody IgM Negative (NEGAT); Hepatitis B Core Antibody Negative (NEGAT); Hepatitis B surface Ag Negative (NEGAT); Hepatitis C Ab w Rflx HCV PCR Negative (NEGAT)
[2018-10-09 15:44] LABS: Albumin 63.6 % (55.8-66.1); Comment SEE COMMENTS; Total Protein 7.1 g/dl (6.3-8.2)
[2018-10-12 14:59] LABS: Immunotyping, Serum Interpretation:
== END 2018-10-07 10:57 ==
PROVIDERS: Emergency Medicine; PCP Family Medicine; Visit Provider Family Medicine
DX: K75.9 Inflammatory liver disease, unspecified (principal); R07.1 Chest pain on breathing; F10.20 Alcohol dependence, uncomplicated; E11.9 Type 2 diabetes mellitus without complications
CPT/HCPCS: 36415; 80076; 86704; 86709; 86803; 87340; 83036; 83735; 84165; 85610; 86320

== ENCOUNTER 2018-12-22 01:30 | Outpatient (CLI) | payer OTHER, SELFPAY ==
[2018-12-22 11:58] LABS: Hemoglobin A1C 6.6 % (4.5-6.2)
== END 2018-12-22 01:50 ==
PROVIDERS: PCP Family Medicine; Visit Provider Family Medicine
DX: E11.9 Type 2 diabetes mellitus without complications (principal)
CPT/HCPCS: 36415; 83036

== ENCOUNTER 2019-03-29 01:39 | Outpatient (CLI) | payer OTHER, SELFPAY ==
[2019-03-29 12:59] LABS: Calculated LDL 102 mg/dL; Cholesterol 181 mg/dL (<200); HDL Cholesterol 33 mg/dL (40-60); Triglyceride 233 mg/dL (<150)
== END 2019-03-29 01:59 ==
PROVIDERS: PCP Family Medicine; Visit Provider Family Medicine
DX: E11.9 Type 2 diabetes mellitus without complications (principal)
CPT/HCPCS: 36415; 80061

== ENCOUNTER 2019-09-09 12:24 | Outpatient (CLI) | payer OTHER, SELFPAY ==
--- NOTE | 2019-09-09 12:00 | DI.RAD_ITS ---
EXAM: XR HAND LT COMPLETE CLINICAL HISTORY: S/P fall. Hyper-extended L hand and fingers., finger pain, M79.645 TECHNIQUE: COMPARISON: CR RIGHT HAND COMPLETE from 02/16/2014 FINDINGS: Three views were obtained. There is mild narrowing of the cartilaginous joint spaces of the IP joint s of the fingers. Moderate marginal osteophyte formation noted at multiple sites, most prominent at the DIP joints of index and ring fingers. Mild narrowing of cartilaginous joint space with associated marginal osteophyte formation also noted at the greater multangular 1st metacarpal joint. IMPRESSION: Degenerative changes predominantly involving DIP joints as described above.
--- NOTE | 2019-09-09 12:00 | DI.RAD_ITS ---
EXAM: XR SHOULDER LT COMPLETE 2+V CLINICAL HISTORY: Left shoulder pain - S/P trip and fall, M25.512 TECHNIQUE: COMPARISON: CR LEFT SHOULDER COMPLETE from 04/13/2010 FINDINGS: Five views were obtained. Minimal marginal osteophyte formation noted at the glenohumeral joint. Ca rtilaginous joint space appears fairly well maintained. Minimal hypertrophic degenerative changes at the AC joint. No other significant bony or soft tissue abnormality seen. 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
--- NOTE | 2019-09-09 12:00 | DI.RAD_ITS ---
EXAM: XR KNEE RT 3V AP,LAT,LAVELLE CLINICAL HISTORY: S/P trip and fall, rt knee pain, M25.561 TECHNIQUE: COMPARISON: CR XR knee RT 2V AP,lat from 05/13/2018 FINDINGS: Three views were obtained. There is moderate narrowing of the medial tibiofemoral cartilaginous join t space. There may be mild narrowing of patellofemoral cartilaginous joint space as well. Minimal m arginal osteophyte formation noted at multiple sites. Possible small joint effusion. IMPRESSION: . [id number] DJD medial tibiofemoral joint. No evidence of acute fracture.
== END 2019-09-09 12:44 ==
PROVIDERS: PCP Family Medicine; Visit Provider Nurse Practitioner Family
DX: M25.561 Pain in right knee (principal); M17.11 Unilateral primary osteoarthritis, right knee; M25.512 Pain in left shoulder; M19.012 Primary osteoarthritis, left shoulder; M79.645 Pain in left finger(s); M79.642 Pain in left hand; M19.042 Primary osteoarthritis, left hand
CPT/HCPCS: 73562; 73030; 73130

== ENCOUNTER 2019-09-16 02:46 | Outpatient (CLI) | payer OTHER, SELFPAY ==
[2019-09-16 12:11] LABS: Hemoglobin A1C 7.1 % (3.8-5.6)
[2019-09-16 12:50] LABS: CREATININE 0.93 mg/dL (0.70-1.30); Potassium 4.5 mmol/L (3.5-5.1)
== END 2019-09-16 03:06 ==
PROVIDERS: PCP Family Medicine; Visit Provider Family Medicine
DX: I10 Essential (primary) hypertension (principal); R73.9 Hyperglycemia, unspecified
CPT/HCPCS: 36415; 82565; 83036; 84132

== ENCOUNTER 2019-10-01 03:43 | Outpatient (CLI) | payer OTHER, SELFPAY ==
--- NOTE | 2019-10-01 10:06 | DI.RAD_ITS ---
EXAM: XR FINGER LT RING CLINICAL HISTORY: Cont. pain - question occult fracture M79.645 PAIN LT FINGER TECHNIQUE: COMPARISON: CR XR HAND LT COMPLETE from 09/09/2019 FINDINGS: Three views were obtained. There are prominent hypertrophic degenerative marginal osteophytes of DIP joint the ring finger and to a lesser degree the DIP joints of the remaining fingers. There is some loss of the cartilaginous joint spaces of the DIP joints. No fracture is seen involving the ring fi nger or the other fingers as visualized. IMPRESSION: DJD, no fracture.
== END 2019-10-01 04:03 ==
PROVIDERS: PCP Family Medicine; Visit Provider Nurse Practitioner Family
DX: M79.645 Pain in left finger(s) (principal); M19.042 Primary osteoarthritis, left hand
CPT/HCPCS: 73140

== ENCOUNTER 2019-12-05 09:53 | Emergency (ER) | payer OTHER, SELFPAY ==
[2019-12-05] VITALS (51 sets, daily range): BP systolic 122–141; BP diastolic 82–97; PULSE 72–98; RESP 9–27; TEMP 36.7; O2SAT 88–97
--- NOTE | 2019-12-05 09:45 | RT.EKG_ITS ---
APPROVED REPORT Exam: Resting ECG Patient Location: E HR:79 bpm ECG Measurements Heart Rate 79 AXIS NM 179 P 56 QRSd 112 QRS -38 QT 381 T 97 QTc 437 Conclusion Sinus rhythm...normal P axis, V-rate 60- 99
--- NOTE | 2019-12-05 10:04 | ED.GENADUL_ITS ---
Discharge Plan Disposition Patient Disposition: [facility] Condition: Serious Discharge Details Clinical Impression: Non-ST elevation [place] (NSTEMI) Primary Care Provider: Peng Malone ED Provider: Laverne Irene [place] Meds and New Rx's Prescriptions: No Action metformin 1,000 mg tablet 1,000 mg PO BID Qty: 180 RF: 3 metoprolol succinate 50 mg tablet extended release 24 hr 50 mg PO DAILY Qty: 90 RF: 3 amitriptyline 50 mg tablet 50 mg PO HS Qty: 90 RF: 3 lorazepam 1 mg tablet 1 mg PO QHS PRN (Reason: anxiety) Qty: 30 RF: 2 pregabalin 150 mg capsule 150 mg PO BID Qty: 60 RF: 5 nitroglycerin 0.4 mg tablet, sublingual 0.4 mg SL ONCE PRN (Reason: chest pain) RF: 0 prasugrel 10 mg tablet 10 mg PO DAILY Qty: 90 RF: 3 rosuvastatin [Crestor] 40 mg tablet 40 mg PO DAILY Qty: 90 RF: 3 aspirin [Aspir-81] 81 MG tablet,delayed release (DR/EC) 1 tab PO HS RF: 0 albuterol sulfate [Proventil HFA] 6.7 GM HFA aerosol inhaler 2 puff Inhalation Q4H PRN Qty: 3 RF: 4 (DME) blood-glucose meter [OneTouch UltraMini] kit See Dose Instructions .ROUTE .MEDSUPPLY Qty: 1 RF: 0 (DME) lancets [BD Ultra Fine Lancets] 33 gauge misc See Dose Instructions .ROUTE .MEDSUPPLY Qty: 100 RF: 3 (DME) OneTouch Verio test strips Strip See Dose Instructions .ROUTE .MEDSUPPLY Qty: 300 RF: 3 pravastatin [Pravachol] 40 mg tablet 40 mg PO DAILY Qty: 90 RF: 3 venlafaxine 75 mg capsule,extended release 24hr 75 mg PO DAILY Qty: 30 RF: 2 melatonin 10 MG tablet 10 mg PO DAILY RF: 0 losartan 25 mg Tablet 25 mg PO DAILY RF: 0 isosorbide mononitrate 30 mg tablet extended release 24 hr 30 mg PO DAILY Qty: 30 RF: 0 disulfiram 250 mg tablet 250 mg PO DAILY RF: 0 Naproxen PM 220-25 mg Tablet 2 tab PO HS RF: 0 Discharge Data Discharge Date/Time-TO BE ENTERED AT DEPARTURE: 12/05/19 16:55 Medical Decision Making <MARIAM Cruz - Last Filed: 12/14/19 16:17> Patient is a pleasant 59-year-old male presenting today with chief complaint of chest pain. Reports he has had intermittent chest pain, primarily comes on when at rest, for the past 5 days. States the pain began again this morning a cough when he awoke. He denies any radiation of pain. States that he can occasionally also have associated shortness of breath. The shortness of breath does get worse with exertion but chest pain does not. States that he did have nausea a few days ago and again this morning. No vomiting. This is not reliably associated with the chest discomfort. He denies any fevers or chills. No cough. No pain with inspiration. No history of cardiac disease, no history of pulmonary embolism. He does report that both his father and grandfather had coronary artery disease both diagnosed in their 60s. He states that this time he is having no symptoms, pain is completely resolved. On exam, patient is resting comfortably. Vital signs are stable. His lungs are clear. Normal cardiac exam. No epigastric pain. No lower extremity edema or calf tenderness. With the patient's shortness of breath, I am concerned for potential COPD exacerbation, PE. Also considered ACS with the patient's chest discomfort although this is not exertional. Patient does report long periods of time being sedentary associated with work. He is a non-smoker. No alcohol x15 months. Past medical history significant for benign prostate hyperplasia, diabetes, hypertension, GERD, hyperlipidemia, pharyngeal esophageal dysphagia. Patient does have a history of a Jennifer that is not endorsing any change in appetite or increased discomfort associated with p.o. intake. Labs reviewed. No leukocytosis, stable H&H. BMP 373. D-dimer within normal limits. Patient does have an elevated anion gap and BUN. He does report that he has been working in a very hot area and is concerned he may be dehydrated associated with increased sweating. His glucose was initially 262 on labs and repeat is 139. He does state that he did have a screen this morning. Initial troponin is less than 0.05. Chest x-ray reviewed by radiologist: FINDINGS: Lungs: The lungs are normally expanded and clear. Pleural space: Normal. Heart/Mediastinum: Normal heart and cardiomediastinal silhouette. Vasculature: Normal pulmonary vessel caliber. Normal aorta. Bones/joints: The bones are intact. IMPRESSION: No acute disease or suspicious finding. Discussed these findings with the p mary kay. He remains in symptomatic care. He is feeling Like some of this may be stress-induced. He reports that he has had a large amount of stress recently. States that his is in poor health, work is been difficult and he has been having hard time coping with COVID-19. However, given his past family history as well as personal risk factors, I do feel that it would be appropriate to obtain a 3-hour troponin repeat EKG we will also repeat the BMP after hydration. Discussed this plan with the patient he is in agreement. Patient's repeat troponin is elevated at 0.13. EKG remains unchanged. [place] [facility] [place] Will start heparin. Patient continues to be pain free and asymptomatic. Consulted with cardiology who advised Plavix. They will accept patient to their cardiac unit. Accepting physician Dr. Bey. Awaiting bed placement. [place] [facility] [place] of the N STEMI <Elpidio Hill MD - Last Filed: 12/31/19 09:47> Patient seen, examined, and discussed with MARIAM Irene. Initial ECG and subsequent ECG reviewed and interpreted by me. Please see report. Patient hemodynamically stable. Chest pain-free. Initial troponin negative. Subsequent delta troponin elevated. Suspect N STEMI. Heparin bolus and infusion administered. I agree with treatment plan as discussed/documented. HPI <MARIAM Cruz - Last Filed: 12/14/19 16:17> General Mode of arrival: ambulatory . Date/Time Provider Initiated Documentation: 12/05/19 10:04 . Limitations to Documentation: no limitations . Information obtained by: patient and RN notes reviewed . History of Present Illness 59 year old M presents to the emergency department with the chief complaint of chest pain, described as mild (no pain at this time, pain had been moderate when maximal), Quality is described as aching, and is localized to the chest. Patient reports no radiation. Patient started experiencing this day(s) (5) and it has been intermittent. No relieving factors improve symptom(s), No exacerbating factors reported . Patient notes chest pain, nausea/vomiting (states that 4 days ago he had nausea, no vomiting) and shortness of breath (associated with CP); denies cough, fever/chills, headaches, loss of appetite, rash and weakness. Patient did receive the following treatments prior to arrival, none Related Data Home Medications Medication Instructions Recorded Confirmed albuterol sulfate [Proventil HFA] 2 puff INHALATION Q4H PRN #3 puff 08/07/12 12/28/19 aspirin [Aspir-81] 1 tab PO HS tab-cap 08/07/12 12/28/19 melatonin 10 mg PO DAILY 10/19/16 12/28/19 blood-glucose meter #1 each 10/13/18 12/15/19 lancets 33 gauge #100 each 10/13/18 12/15/19 blood sugar diagnostic #300 each 02/23/19 12/15/19 amitriptyline 50 mg tablet 50 mg PO HS #90 tab 06/18/19 12/28/19 pravastatin 40 mg tablet 40 mg PO DAILY #90 tab-cap 08/24/19 12/28/19 venlafaxine 75 mg capsule,extended 75 mg PO DAILY #30 cap 09/14/19 12/28/19 release 24 hr metformin 1,000 mg tablet 1,000 mg PO BID #180 tab 09/17/19 12/28/19 metoprolol succinate 50 mg 50 mg PO DAILY #90 tab 09/17/19 12/28/19 tablet,extended release 24 hr Naproxen PM 2 tab PO HS 12/05/19 12/28/19 disulfiram 250 mg PO DAILY 12/05/19 12/28/19 lorazepam 1 mg tablet 1 mg PO QHS PRN #30 tab 12/15/19 12/28/19 nitroglycerin 0.4 mg sublingual 0.4 mg SL ONCE PRN 12/15/19 12/28/19 tablet prasugrel 10 mg tablet 10 mg PO DAILY #90 tab 12/15/19 12/28/19 pregabalin 150 mg capsule 150 mg PO BID #60 cap 12/15/19 12/28/19 rosuvastatin 40 mg tablet 40 mg PO DAILY #90 tab 12/15/19 12/28/19 isosorbide mononitrate 30 mg PO DAILY #30 tab 12/28/19 losartan 25 mg PO DAILY 12/28/19 12/28/19 Previous Rx's Medication Instructions Recorded blood-glucose meter #1 each 10/13/18 lancets 33 gauge #100 each 10/13/18 blood sugar diagnostic #300 each 02/23/19 amitriptyline 50 mg tablet 50 mg PO HS #90 tab 06/18/19 pravastatin 40 mg tablet 40 mg PO DAILY #90 tab-cap 08/24/19 venlafaxine 75 mg capsule,extended 75 mg PO DAILY #30 cap 09/14/19 release 24 hr metformin 1,000 mg tablet 1,000 mg PO BID #180 tab 09/17/19 metoprolol succinate 50 mg 50 mg PO DAILY #90 tab 09/17/19 tablet,extended release 24 hr lorazepam 1 mg tablet 1 mg PO QHS PRN #30 tab 12/15/19 prasugrel 10 mg tablet 10 mg PO DAILY #90 tab 12/15/19 pregabalin 150 mg capsule 150 mg PO BID #60 cap 12/15/19 rosuvastatin 40 mg tablet 40 mg PO DAILY #90 tab 12/15/19 isosorbide mononitrate 30 mg PO DAILY #30 tab 12/28/19 Allergies Allergy/AdvReac Type Severity Reaction Status Date / Time adhesive Allergy Severe SKIN RASH Verified 12/28/19 12:11 Penicillins Allergy Unknown Verified 12/28/19 12:11 hydrochlorothiazide AdvReac Severe CRAMPING Verified 12/28/19 12:11 zolpidem AdvReac Severe SLEEP Verified 12/28/19 12:11 WALKING amlodipine AdvReac Intermediate edema Verified 12/28/19 12:11 General Stated Complaint: Chest Pain ISAURA: 2 Review of Systems <MARIAM Cruz - Last Filed: 12/14/19 16:17> Constitutional Constitutional: Reports as per HPI, Denies chills, Denies fever(s), Denies headache(s), Denies lethargy and Denies poor appetite Eyes Eyes: Denies change in vision ENT Ears, Nose, Mouth, and Throat: Denies dizziness and Denies headache(s) Cardiovascular Cardiovascular: Reports as per HPI, Reports chest pain at rest, Denies chest pain with activity, Denies leg edema, Denies lightheadedness, Denies radiating jaw, neck or arm pain, Denies palpitations, Reports dyspnea (intermittent, associates with CP) and Reports dyspnea on exertion Respiratory Respiratory: Reports as per HPI, Denies chest congestion, Denies cough, Denies pain on inspiration, Denies pain with cough, Reports dyspnea (intermittent, associates with CP), Reports dyspnea on exertion and Denies wheezing Gastrointestinal Gastrointestinal: Reports as per HPI, Denies abdominal pain, Denies diarrhea, Denies nausea and Denies vomiting Genitourinary Genitourinary: Denies system reviewed and no additional complaints, except as documented (denies change in urinary habits) Musculoskeletal Musculoskeletal: Reports as per HPI and Denies back pain Integumentary/Breasts Skin/Breast: Reports as per HPI and Denies rash Neurologic Neurologic: Reports as per HPI, Denies dizziness and Denies headache(s) Endocrine Endocrine: Denies palpitations Allergic/Immunologic Allergic/Immunologic: Denies wheezing PFSH <MARIAM Cruz - Last Filed: 12/14/19 16:17> Medical History (Updated 12/28/19 @ 16:43 by Zoe Rodríguez DO) Alcoholism /alcohol abuse (04/24/16) better continues to abstain Benign prostatic hyperplasia Carpal tunnel syndrome Constipation Controlled diabetes mellitus Essential hypertension Gastroesophageal reflux disease Hemorrhoids History of tobacco use Hyperlipidemia Malignant melanoma of skin of nose left chest; 1 positive node; resection, interferon; neuralgia left axilla- p/surgical Pain, joint, knee, right see Dr. Jacques as needed Peripheral neuralgia refer to pain clinic increase lyrica Pharyngoesophageal dysphagia (07/11/15) due to Jennifer procedure Radiculopathy of lumbar region Syncope and collapse (04/10/11) 2012 Neurocardiogenic and tussivive syncope Tubular adenoma of colon Surgical History (Updated 12/28/19 @ 16:43 by Zoe Rodríguez DO) Jennifer Fundoplication (~2001) resection Family History Mother Diabetes Personal history of malignant neoplasm BREAST Father Essential hypertension Heart disease Hypercholesterolemia Stroke Sister No problems noted. Sister No problems noted. Brother No problems noted. Brother No problems noted. Son No problems noted. Grandmother Diabetes Personal history of malignant neoplasm Social History Smoking/Tobacco Use Status: Former Tobacco Use Alcohol Intake: former Drug use: Occasionally Substance use type: marijuana Details: No ETOH x 1 year Seatbelt use: always Do you feel safe at home: Yes Do you feel safe in your relationship?: Yes Exam <MARIAM Cruz - Last Filed: 12/14/19 16:17> Const General: cooperative, healthy appearing, comfortable, no acute distress and well developed Nutritional Appearance: well nourished and overweight Orientation: alert, awake and oriented x3 HENMT Head: normal to inspection Ears: hearing grossly normal bilaterally Mouth: moist mucous membranes Chest Chest: normal inspection of the chest, normal palpation of entire chest wall and no crepitus Resp Effort & Inspection: normal respiratory effort, able to speak in complete sen tences and no respiratory distress Auscultation: clear to auscultation bilaterally, no rales, no rhonchi and no wheezes Cardio Rate: regular rate Rhythm: regular rhythm Heart Sounds: S1 normal and S2 normal GI Inspection: normal to inspection, no edema and non-distended Palpation: soft, no hepatosplenomegaly, not firm, no guarding, not rigid and nontender Auscultation: normal bowel sounds Back/Spine/Pelvis Back: no CVA tenderness Thoracic/Lumbar Spine: thoracic and lumbar spine normal to inspection Skin General skin exam: no rashes or lesions noted Trauma: no lacerations or abrasions Neuro General: patient alert, patient awake and patient oriented x3 Cognition: normal cognition Speech: speech normal Gait: normal gait Extrem General: normal to inspection, capillary refill normal, no pedal edema, no calf tenderness and normal gait Psych Appearance: grossly normal and well kempt Mental Status: mental status grossly normal Speech and Movement: speech and movement normal Course <MARIAM Cruz - Last Filed: 12/14/19 16:17> Vital Signs Vital signs: Vital Signs Temperature 36.7 C 12/05/19 09:59 Pulse 90 12/05/19 09:59 Blood Pressure 135/82 12/05/19 09:59 Pulse Oximetry 94 L 12/05/19 09:59 Temperature 36.7 C 12/05/19 09:59 Temperature Source Temporal Artery Scan 12/05/19 09:59 Pulse 90 12/05/19 09:59 Blood Pressure 135/82 12/05/19 09:59 Blood Pressure Position Supine 12/05/19 09:59 Pulse Oximetry 94 L 12/05/19 09:59 Oxygen Delivery Method Room Air 12/05/19 09:59 Oxygen Flow Rate 0 12/05/19 09:59 Pain Level 1 12/05/19 09:59
[2019-12-05] MEDS: Aspirin 81 MG CHEW 324 MG CH (10:25)
[2019-12-05 10:36] LABS: Abs Immature Grans 0.05 10^3/uL (0.0-0.06); Absolute Basophil Count 0.09 10^3/uL (0.0-0.2); Absolute Eosinophil Count 0.27 10^3/uL (0.0-0.7); Absolute Lymphocyte Count 2.09 10^3/uL (1.2-3.4); Absolute Monocyte Count 0.36 10^3/uL (0.1-0.8); Absolute Neutrophil Count 5.44 10^3/uL (1.2-6.7); Basophils % 1.1; Eosinophils % 3.3; HCT 49.3 % (40.0-50.0); HGB 16.6 g/dL (13.5-17.5); Immature Grans % 0.6; Lymphocytes % 25.2; MCH 29.4 pg (27.0-33.0); MCHC 33.7 % (32.0-36.0); MCV 87.3 fL (80-95); MPV 10.4 fL (8.0-11.0); Monocytes % 4.3; Neutrophils % 65.5; Nucleated RBC 0 %; Platelet Count 277 10^3/uL (130-400); RBC 5.65 10^6/uL (4.36-5.78); RDW 13.2 % (11.8-14.1); RDW-SD 42.1 fL
[2019-12-05 10:52] LABS: INR 1.1 (0.9-1.1); PTT Activated 25.4 sec (21.0-31.4); Prothrombin Time 10.6 sec (9.3-11.0)
--- NOTE | 2019-12-05 10:56 | DI.RAD_ITS ---
EXAM: XR CHEST 2V PA LATERAL CLINICAL HISTORY: CP and SOB TECHNIQUE: 2D digital imaging was performed. COMPARISON: CR XR CHEST 2V PA LATERAL from 05/13/2018 FINDINGS: MEDIASTINUM: Normal. HEART: Normal. PULMONARY VASCULATURE: Normal. LUNGS: Clear. PLEURAL SPACE: No pleural effusion or pneumothorax. BONE:Within normal limits for the patient's age. OTHER FINDINGS:Normal. IMPRESSION: No acute pulmonary findings. DATA REPOSITORY: RADIATION DOSE DELIVERED:
[2019-12-05 11:04] LABS: ALT 50 U/L (16-63); AST 27 U/L (15-37); Albumin 4.3 g/dL (3.4-5.0); Alkaline Phosphatase 101 U/L (46-116); Anion Gap 15.3 mmol/L (3-11); BUN 23 mg/dL (7-18); CO2 20.7 mmol/L (21.0-32.0); CREATININE 1.21 mg/dL (0.70-1.30); Calcium 9.4 mg/dL (8.5-10.1); Chloride 102 mmol/L (98-107); Glucose 262 mg/dL (74-106); Magnesium 1.7 mg/dL (1.8-2.4); NT-proBNP 373 pg/mL (<300); Potassium 3.6 mmol/L (3.5-5.1); Sodium 138 mmol/L (136-145); Total Protein 7.7 g/dL (6.4-8.2); Troponin I < 0.05 ng/mL (<0.06)
[2019-12-05 11:09] LABS: D-Dimer 419 ng/mlFEU (<500)
--- NOTE | 2019-12-05 11:26 | DI.VRAD_ITS ---
PROCEDURE INFORMATION: Exam: XR Chest, 2 Views Exam date and time: 12/05/2019 10:56 AM Age: 59 years old Clinical indication: Type not specified; Patient HX: Chest pain since Friday. TECHNIQUE: Imaging protocol: XR of the chest Views: 2 views. COMPARISON: CR XR CHEST 2V PA LATERAL 05/13/2018 1:40 PM FINDINGS: Lungs: The lungs are normally expanded and clear. Pleural space: Normal. Heart/Mediastinum: Normal heart and cardiomediastinal silhouette. Vasculature: Normal pulmonary vessel caliber. Normal aorta. Bones/joints: The bones are intact. IMPRESSION: No acute disease or suspicious finding. Dictated and Authenticated by: Nikita Zuniga MD. Ordering:JIMBO Galloway MD
[2019-12-05] MEDS: Lactated Ringers 1,000 ML 500 ML IV (11:28)
--- NOTE | 2019-12-05 12:28 | NUR.NOTE ---
Nursing Note:Patient updated on POC to recheck labs and EKG at 1300.
--- NOTE | 2019-12-05 13:00 | RT.EKG_ITS ---
APPROVED REPORT Exam: Resting ECG Patient Location: E HR:76 bpm ECG Measurements Heart Rate 76 AXIS [place] 180 P 44 QRSd 109 QRS -41 QT 389 T 63 QTc 439 Conclusion Sinus rhythm...normal P axis, V-rate 60- 99 Left anterior fascicular block...axis(240,-40), init forces inf ST elevation, consider inferior injury...ST >0.08mV, II III aVF I disagree with autointerpretation and NO STEMI
[2019-12-05 13:39] LABS: Anion Gap 10.3 mmol/L (3-11); BUN 22 mg/dL (7-18); CO2 24.7 mmol/L (21.0-32.0); CREATININE 0.86 mg/dL (0.70-1.30); Calcium 9.3 mg/dL (8.5-10.1); Chloride 105 mmol/L (98-107); Glucose 101 mg/dL (74-106); Sodium 140 mmol/L (136-145)
[2019-12-05 13:41] LABS: Troponin I 0.13 ng/mL (<0.06)
--- NOTE | 2019-12-05 14:45 | RT.EKG_ITS ---
APPROVED REPORT Exam: Resting ECG Patient Location: E HR:73 bpm ECG Measurements Heart Rate 73 AXIS [place] 182 P 42 QRSd 110 QRS -37 QT 391 T 79 QTc 430 Conclusion Sinus rhythm...normal P axis, V-rate 60- 99 Left axis deviation...QRS axis (-30,-90)
[2019-12-05] MEDS: Clopidogrel 300 MG TAB PO (15:46)
--- NOTE | 2019-12-05 15:52 | NUR.NOTE ---
Nursing Note: PB and crackers to patient waiting for call back from [facility] with room number.
== END 2019-12-05 16:55 | disposition short-term general hospital (02) ==
PROVIDERS: Emergency Provider Physician Assistant; PCP Family Medicine
DX: R07.9 Chest pain, unspecified (principal); R06.02 Shortness of breath; R11.0 Nausea; E11.9 Type 2 diabetes mellitus without complications; Z79.84 Long term (current) use of oral hypoglycemic drugs; I10 Essential (primary) hypertension; K21.9 Gastro-esophageal reflux disease without esophagitis; Z87.891 Personal history of nicotine dependence
CPT/HCPCS: 36415; 36416; 80048; 80053; 82962; 93005; 96361; 96365; 96366; 99285; 71046; 83735; 83880; 84484; 85025; 85379; 85610; 85730; 93010

== ENCOUNTER 2019-12-15 02:55 | Outpatient (CLI) | payer OTHER, SELFPAY ==
[2019-12-15 12:35] LABS: COMMENT (LAB VIEW ONLY) 286.41 mg/dL; Microalb ug/mg Crea 33.3 ug/mg Cr
[2019-12-15 12:47] LABS: Hemoglobin A1C 6.9 % (<5.7)
== END 2019-12-15 03:15 ==
PROVIDERS: PCP Family Medicine; Visit Provider Family Medicine
DX: E11.9 Type 2 diabetes mellitus without complications (principal); R73.9 Hyperglycemia, unspecified
CPT/HCPCS: 36415; 82043; 82570; 83036

== ENCOUNTER 2019-12-28 11:39 | Emergency (ER) | payer OTHER, SELFPAY ==
[2019-12-28] VITALS (45 sets, daily range): BP systolic 116–149; BP diastolic 72–97; PULSE 62–73; RESP 10–23; TEMP 36.8; O2SAT 90–96
--- NOTE | 2019-12-28 11:45 | RT.EKG_ITS ---
APPROVED REPORT Exam: Resting ECG Patient Location: E HR:67 bpm ECG Measurements Heart Rate 67 AXIS [place] 199 P 50 QRSd 111 QRS -14 QT 388 T 63 QTc 409 Conclusion Sinus rhythm...normal P axis, V-rate 60- 99 No STEMI. I have reviewed and interpreted ECG and agree with software generated interpretation.
--- NOTE | 2019-12-28 12:03 | ED.GENADUL_ITS ---
Discharge Plan Disposition Patient Disposition: HOME Condition: Good Discharge Details Clinical Impression: Atypical chest pain, Fatigue, History of coronary artery stent placement Primary Care Provider: Peng Malone ED Provider: Zoe Rodríguez Home Meds and New Rx's Prescriptions: New isosorbide mononitrate 30 mg tablet extended release 24 hr 30 mg PO DAILY Qty: 30 RF: 0 Continued metformin 1,000 mg tablet 1,000 mg PO BID Qty: 180 RF: 3 metoprolol succinate 50 mg tablet extended release 24 hr 50 mg PO DAILY Qty: 90 RF: 3 amitriptyline 50 mg tablet 50 mg PO HS Qty: 90 RF: 3 lorazepam 1 mg tablet 1 mg PO QHS PRN (Reason: anxiety) Qty: 30 RF: 2 pregabalin 150 mg capsule 150 mg PO BID Qty: 60 RF: 5 nitroglycerin 0.4 mg tablet, sublingual 0.4 mg SL ONCE PRN (Reason: chest pain) RF: 0 prasugrel 10 mg tablet 10 mg PO DAILY Qty: 90 RF: 3 rosuvastatin [Crestor] 40 mg tablet 40 mg PO DAILY Qty: 90 RF: 3 aspirin [Aspir-81] 81 MG tablet,delayed release (DR/EC) 1 tab PO HS RF: 0 albuterol sulfate [Proventil HFA] 6.7 GM HFA aerosol inhaler 2 puff Inhalation Q4H PRN Qty: 3 RF: 4 (DME) blood-glucose meter [OneTouch UltraMini] kit See Dose Instructions .ROUTE .MEDSUPPLY Qty: 1 RF: 0 (DME) lancets [BD Ultra Fine Lancets] 33 gauge misc See Dose Instructions .ROUTE .MEDSUPPLY Qty: 100 RF: 3 (DME) OneTouch Verio test strips Strip See Dose Instructions .ROUTE .MEDSUPPLY Qty: 300 RF: 3 pravastatin [Pravachol] 40 mg tablet 40 mg PO DAILY Qty: 90 RF: 3 venlafaxine 75 mg capsule,extended release 24hr 75 mg PO DAILY Qty: 30 RF: 2 melatonin 10 MG tablet 10 mg PO DAILY RF: 0 losartan 25 mg Tablet 25 mg PO DAILY RF: 0 disulfiram 250 mg tablet 250 mg PO DAILY RF: 0 Naproxen PM 220-25 mg Tablet 2 tab PO HS RF: 0 Discharge Instructions Instructions: Chest Pain (ED), Fatigue (ED) Additional Instructions: Drink plenty of fluids and get plenty of rest. Start taking the Imdur prescription as directed. Follow-up with your scheduled appointment with Dr. Mercado on January 03. Return immediately to the emergency department if you develop any worsening or new concerning symptoms. Discharge Data Discharge Physician: Zoe Rodríguez Medical Decision Making 1210 -- 59-year-old male with a history of hypertension, hyperlipidemia, diabetes, former alcohol abuse, NSTEMI last month s/p JUAN to LAD on asa and prasugrel ends for an episode of chest pressure yesterday, and intermittent shortness of breath and fatigue since yesterday. Denies any chest pain today. EKG notes a rate of 67, sinus with no acute ST-T wave ischemic changes. Denies any chest pressure at present. Vitals within normal limits. Patient appears nontoxic and is texting on his phone on arrival into the room. Lungs are clear. No focal deficits. Oxygen saturation 96% on room air. Differential diagnosis includes ACS, pneumonia, CHF, pericardial effusion, PE. Will place an IV, bolus IV fluids, screening labs, CT chest and reassess. 1330 -- labs and imaging reviewed. Magnesium 1.6, will replete. Troponin negative. CT chest negative. 1400 -- pt reassessed and denies any acute symptoms. 1545 -- repeat troponin negative. Repeat EKG unchanged. Patient denies any chest pain. 1630 --Case discussed with [facility] cardiology who reviewed EKGs. She states EKGs today look improved from his last EKG after stent placement last month there. As patient's chest pressure was minimal yet relieved with nitro yesterday, and he is 1 month status post stent placement, recommend starting Imdur 30 mg p.o. daily. Agrees that work-up here today are reassuring and patient appropriate for discharge. Patient has a follow-up appointment with Dr. Mercado on January 03. Usual and customary return precautions given prior to discharge. Medical Records Medical records reviewed: Yes I reviewed the patient's medical records. Imaging Data Radiologic Study: Radiologist's impression: CT CHEST PE CTA CLINICAL HISTORY: chest pain, sob, r/o acute disease. TECHNIQUE: Imaging Protocol: Axial CT angiography was performed with multi- slice acquisition and multi-planar and/or 3D reconstructions. CONTRAST MATERIAL: Intravenous: Omnipaque 350 Contrast volume:100 mL COMPARISON: CT CT ABDOMEN WO/W from 07/03/2018 FINDINGS: Pulmonary Arteries: No evidence of filling defect to suggest pulmonary emboli. Tracheobronchial tree: Patent where visualized. Mediastinum and Debbie: No dominant adenopathy or fluid collection. Pulmonary parenchyma: No consolidation or dominant measurable mass. No architectural distortion. Pleura: No effusion or pneumothorax. Heart: The heart is not dilated. Mild coronary artery calcification. No significant pericardial effusion. Aorta: Thoracic aorta non-dilated. Atherosclerosis. Upper abdomen: Unremarkable. Bones: Normal. Soft tissues: Unremarkable. IMPRESSION: 1. No evidence of a pulmonary embolus. 2. No acute pulmonary process. 3. Findings were discussed with the emergency department on the date of the examination. Lab Data Lab results reviewed: Yes I reviewed the patient's lab results. Labs: Laboratory Tests Range/Units 12/28/19 12/28/19 12/28/19 12:09 12:09 12:09 WBC (4.4-10.8) 10^3/uL 9.30 RBC (4.36-5.78) 10^6/uL 4.89 Hgb (13.5-17.5) g/dL 14.5 Hct (40.0-50.0) % 42.4 MCV (80-95) fL 86.7 MCH (27.0-33.0) pg 29.7 MCHC (32.0-36.0) % 34.2 RDW (11.8-14.1) % 12.8 Plt Count (130-400) 10^3/uL 250 MPV (8.0-11.0) fL 10.1 Immature Gran % 0.4 Neutrophils % 51.3 Lymphocytes % 35.7 Monocytes % 6.8 Eosinophils % 4.9 Basophils % 0.9 Nucleated RBC % % 0 Absolute Neutrophils (1.2-6.7) 10^3/uL 4.77 Absolute Lymphocytes (1.2-3.4) 10^3/uL 3.32 Absolute Monocytes (0.1-0.8) 10^3/uL 0.63 Absolute Eosinophils (0.0-0.7) 10^3/uL 0.46 Absolute Basophils (0.0-0.2) 10^3/uL 0.08 PT (9.3-11.0) sec 9.9 INR (0.9-1.1) 1.0 APTT (21.0-31.4) sec 23.7 Sodium (136-145) mmol/L 139 Potassium (3.5-5.1) mmol/L 4.2 Chloride (98-107) mmol/L 105 Carbon Dioxide (21.0-32.0) mmol/L 23.1 Anion Gap (3-11) mmol/L 10.9 BUN (7-18) mg/dL 13 Creatinine (0.70-1.30) mg/dL 0.87 Estimated GFR/1.73 m2 (mL/min/1.73m2) >= 60.00 Glucose (74-106) mg/dL 158 H Calcium (8.5-10.1) mg/dL 9.3 Magnesium (1.8-2.4) mg/dL 1.6 L Total Bilirubin (0.2-1.0) mg/dL 0.5 AST (15-37) U/L 25 ALT (16-63) U/L 55 Alkaline Phosphatase (46-116) U/L 96 Troponin I (<0.06) ng/mL < 0.05 Total Protein (6.4-8.2) g/dL 7.3 Albumin (3.4-5.0) g/dL 4.0 Urine Color (Yellow) Urine Clarity (Clear) Urine pH (5-8) Ur Specific [place] (1.005-1.025) Urine Protein (Negative) mg/dL Urine Ketones (Negative) mg/dL Urine Blood (Negative) Urine Nitrite (Negative) Urine Bilirubin (Negative) Urine Urobilinogen (Up TO 0.2) EU/dL Ur Leukocyte Esterase (Negative) Urine RBC (0-2) HPF Urine WBC (0-5) HPF Ur Epithelial Cells (Negative) HPF Urine Crystals (Negative) HPF Urine Bacteria (Negative) HPF Urine Casts (Negative) LPF Urine Mucus (Negative) Ur Culture Indicated? Urine Glucose (Negative) mg/dL Range/Units 12/28/19 12/28/19 13:40 15:10 WBC (4.4-10.8) 10^3/uL RBC (4.36-5.78) 10^6/uL Hgb (13.5-17.5) g/dL Hct (40.0-50.0) % MCV (80-95) fL MCH (27.0-33.0) pg MCHC (32.0-36.0) % RDW (11.8-14.1) % Plt Count (130-400) 10^3/uL MPV (8.0-11.0) fL Immature Gran % Neutrophils % Lymphocytes % Monocytes % Eosinophils % Basophils % Nucleated RBC % % Absolute Neutrophils (1.2-6.7) 10^3/uL Absolute Lymphocytes (1.2-3.4) 10^3/uL Absolute Monocytes (0.1-0.8) 10^3/uL Absolute Eosinophils (0.0-0.7) 10^3/uL Absolute Basophils (0.0-0.2) 10^3/uL PT (9.3-11.0) sec INR (0.9-1.1) APTT (21.0-31.4) sec Sodium (136-145) mmol/L Potassium (3.5-5.1) mmol/L Chloride (98-107) mmol/L Carbon Dioxide (21.0-32.0) mmol/L Anion Gap (3-11) mmol/L BUN (7-18) mg/dL Creatinine (0.70-1.30) mg/dL Estimated GFR/1.73 m2 (mL/min/1.73m2) Glucose (74-106) mg/dL Calcium (8.5-10.1) mg/dL Magnesium (1.8-2.4) mg/dL Total Bilirubin (0.2-1.0) mg/dL AST (15-37) U/L ALT (16-63) U/L Alkaline Phosphatase (46-116) U/L Troponin I (<0.06) ng/mL < 0.05 Total Protein (6.4-8.2) g/dL Albumin (3.4-5.0) g/dL Urine Color (Yellow) Yellow Urine Clarity (Clear) Clear Urine pH (5-8) 7.0 Ur Specific [place] (1.005-1.025) 1.015 Urine Protein (Negative) mg/dL 30 H Urine Ketones (Negative) mg/dL Negative Urine Blood (Negative) Negative Urine Nitrite (Negative) Negative Urine Bilirubin (Negative) Negative Urine Urobilinogen (Up TO 0.2) EU/dL 0.2 Ur Leukocyte Esterase (Negative) Negative Urine RBC (0-2) HPF 0-2 Urine WBC (0-5) HPF 0-2 Ur Epithelial Cells (Negative) HPF Rare Urine Crystals (Negative) HPF Negative Urine Bacteria (Negative) HPF Negative Urine Casts (Negative) LPF Negative Urine Mucus (Negative) Trace Ur Culture Indicated? No Urine Glucose (Negative) mg/dL 500 H ECG Data Attestation: I personally reviewed and interpreted this ECG (s) as follows: Interpretation: #1 -- Rate of 67, sinus. No acute ST elevation or depression. SD 199. QRS 111. QTc 409. #2 -- Rate of 63, sinus. No acute ST elevation or depression. SD 205. QRS 108. QTc 419. HPI General Mode of arrival: ambulatory . Date/Time Provider Initiated Documentation: 12/28/19 11:40 . Limitations to Documentation: no limitations . Information obtained by: patient . HPI Narrative: Patient is a 59-year-old male with a history of hypertension, hyperlipidemia, diabetes, NSTEMI last month s/p JUAN to LAD currently on aspirin and Prasugrel presents for dizziness, anterior chest pressure, shortness of breath and fatigue since yesterday. Patient states he mainly feels fatigue and shortness of breath at this time and currently denies any dizziness or chest pressure. He states he has had a couple episodes of similar symptoms since his stent last month but states his fatigue was more pronounced since yesterday. He states his chest pressure and shortness of breath was worse when he was diagnosed with his NSTEMI last month. He denies any known fever, cough, nausea, vomiting, diarrhea, urinary symptoms or abdominal pain. He denies any recent known sick contacts or recent travel. Related Data Home Medications Medication Instructions Recorded Confirmed albuterol sulfate [Proventil HFA] 2 puff INHALATION Q4H PRN #3 puff 08/07/12 12/28/19 aspirin [Aspir-81] 1 tab PO HS tab-cap 08/07/12 12/28/19 melatonin 10 mg PO DAILY 10/19/16 12/28/19 blood-glucose meter #1 each 10/13/18 12/15/19 lancets 33 gauge #100 each 10/13/18 12/15/19 blood sugar diagnostic #300 each 02/23/19 12/15/19 amitriptyline 50 mg tablet 50 mg PO HS #90 tab 06/18/19 12/28/19 pravastatin 40 mg tablet 40 mg PO DAILY #90 tab-cap 08/24/19 12/28/19 venlafaxine 75 mg capsule,extended 75 mg PO DAILY #30 cap 09/14/19 12/28/19 release 24 hr metformin 1,000 mg tablet 1,000 mg PO BID #180 tab 09/17/19 12/28/19 metoprolol succinate 50 mg 50 mg PO DAILY #90 tab 09/17/19 12/28/19 tablet,extended release 24 hr Naproxen PM 2 tab PO HS 12/05/19 12/28/19 disulfiram 250 mg PO DAILY 12/05/19 12/28/19 lorazepam 1 mg tablet 1 mg PO QHS PRN #30 tab 12/15/19 12/28/19 nitroglycerin 0.4 mg sublingual 0.4 mg SL ONCE PRN 12/15/19 12/28/19 tablet prasugrel 10 mg tablet 10 mg PO DAILY #90 tab 12/15/19 12/28/19 pregabalin 150 mg capsule 150 mg PO BID #60 cap 12/15/19 12/28/19 rosuvastatin 40 mg tablet 40 mg PO DAILY #90 tab 12/15/19 12/28/19 isosorbide mononitrate 30 mg PO DAILY #30 tab 12/28/19 losartan 25 mg PO DAILY 12/28/19 12/28/19 Previous Rx's Medication Instructions Recorded blood-glucose meter #1 each 10/13/18 lancets 33 gauge #100 each 10/13/18 blood sugar diagnostic #300 each 02/23/19 amitriptyline 50 mg tablet 50 mg PO HS #90 tab 06/18/19 pravastatin 40 mg tablet 40 mg PO DAILY #90 tab-cap 08/24/19 venlafaxine 75 mg capsule,extended 75 mg PO DAILY #30 cap 09/14/19 release 24 hr metformin 1,000 mg tablet 1,000 mg PO BID #180 tab 09/17/19 metoprolol succinate 50 mg 50 mg PO DAILY #90 tab 09/17/19 tablet,extended release 24 hr lorazepam 1 mg tablet 1 mg PO QHS PRN #30 tab 12/15/19 prasugrel 10 mg tablet 10 mg PO DAILY #90 tab 12/15/19 pregabalin 150 mg capsule 150 mg PO BID #60 cap 12/15/19 rosuvastatin 40 mg tablet 40 mg PO DAILY #90 tab 12/15/19 isosorbide mononitrate 30 mg PO DAILY #30 tab 12/28/19 Allergies Allergy/AdvReac Type Severity Reaction Status Date / Time adhesive Allergy Severe SKIN RASH Verified 12/28/19 12:11 Penicillins Allergy Unknown Verified 12/28/19 12:11 hydrochlorothiazide AdvReac Severe CRAMPING Verified 12/28/19 12:11 zolpidem AdvReac Severe SLEEP Verified 12/28/19 12:11 WALKING amlodipine AdvReac Intermediate edema Verified 12/28/19 12:11 General ISAURA: 2 Review of Systems All systems reviewed & are unremarkable except as noted in HPI and below Constitutional Constitutional: Reports as per HPI, Denies chills, Reports fatigue and Denies fever(s) Eyes Eyes: Denies blurry vision ENT Ears, Nose, Mouth, and Throat: Denies dizziness, Denies sore throat and Denies throat swelling Cardiovascular Cardiovascular: Reports chest pain and Reports dyspnea Respiratory Respiratory: Denies cough and Reports dyspnea Gastrointestinal Gastrointestinal: Denies abdominal pain, Denies diarrhea and Denies vomiting Genitourinary Genitourinary: Denies hematuria and Denies dysuria Musculoskeletal Musculoskeletal: Denies back pain and Denies numbness Integumentary/Breasts Skin/Breast: Denies lesions and Denies rash Neurologic Neurologic: Denies dizziness, Denies localized weakness and Denies numbness Endocrine Endocrine: Reports fatigue Allergic/Immunologic Allergic/Immunologic: Denies throat swelling [facility] Medical History (Updated 12/28/19 @ 16:43 by Zoe Rodríguez DO) Alcoholism /alcohol abuse (04/24/16) better continues to abstain Benign prostatic hyperplasia Carpal tunnel syndrome Constipation Controlled diabetes mellitus Essential hypertension Gastroesophageal reflux disease Hemorrhoids History of tobacco use Hyperlipidemia Malignant melanoma of skin of nose left chest; 1 positive node; resection, interferon; neuralgia left axilla-p/ surgical Pain, joint, knee, right see Dr. Jacques as needed Peripheral neuralgia refer to pain clinic increase lyrica Pharyngoesophageal dysphagia (07/11/15) due to Jennifer procedure Radiculopathy of lumbar region Syncope and collapse (04/10/11) 2012 Neurocardiogenic and tussivive syncope Tubular adenoma of colon Surgical History (Updated 12/28/19 @ 16:43 by Zoe Rodríguez DO) Jennifer Fundoplication (~2001) resection Family History Mother Diabetes Personal history of malignant neoplasm BREAST Father Essential hypertension Heart disease Hypercholesterolemia Stroke Sister No problems noted. Sister No problems noted. Brother No problems noted. Brother No problems noted. Son No problems noted. Grandmother Diabetes Personal history of malignant neoplasm Social History Smoking/Tobacco Use Status: Former Tobacco Use Alcohol Intake: former Drug use: Occasionally Substance use type: marijuana Details: No ETOH x 1 year Seatbelt use: always Do you feel safe at home: Yes Do you feel safe in your relationship?: Yes Exam Const General: cooperative and no acute distress Orientation: alert, awake and oriented x3 HENMT Head: normal to inspection Ears: hearing grossly normal bilaterally and external ears normal General nose exam: external nose normal Face and sinus: normal facial exam Mouth: mucous membranes dry Teeth and gingiva: dentition normal Eyes General: appearance normal, both eyes and all related structures Eyelids: eyelids normal Pupils: PERRL EOM: EOM intact bilaterally Neck Neck: normal visual inspection Lymphatic: no lymphadenopathy noted Chest Chest: normal inspection of the chest Resp Effort & Inspection: normal respiratory effort and able to speak in complete sentences Auscultation: clear to auscultation bilaterally Cardio Rate: regular rate Rhythm: regular rhythm GI Inspection: normal to inspection Palpation: soft, not firm, no guarding, no hepatosplenomegaly, no masses and nontender Auscultation: normal bowel sounds Skin General skin exam: no rashes or lesions noted Neuro General: patient alert, patient awake, moves all extremities and no focal motor deficits Cognition: normal cognition Speech: speech normal Gait: normal gait Motor: muscle tone normal throughout Sensory Exam: no sensory deficits noted Extrem General: normal to inspection, full ROM, capillary refill normal and no edema Psych Appearance: grossly normal Mental Status: mental status grossly normal Speech and Movement: speech and movement normal Affect: normal affect Thought Process: normal
[2019-12-28 12:26] LABS: Abs Immature Grans 0.04 10^3/uL (0.0-0.06); Absolute Basophil Count 0.08 10^3/uL (0.0-0.2); Absolute Eosinophil Count 0.46 10^3/uL (0.0-0.7); Absolute Lymphocyte Count 3.32 10^3/uL (1.2-3.4); Absolute Monocyte Count 0.63 10^3/uL (0.1-0.8); Absolute Neutrophil Count 4.77 10^3/uL (1.2-6.7); Basophils % 0.9; Eosinophils % 4.9; HCT 42.4 % (40.0-50.0); HGB 14.5 g/dL (13.5-17.5); Immature Grans % 0.4; Lymphocytes % 35.7; MCH 29.7 pg (27.0-33.0); MCHC 34.2 % (32.0-36.0); MCV 86.7 fL (80-95); MPV 10.1 fL (8.0-11.0); Monocytes % 6.8; Neutrophils % 51.3; Nucleated RBC 0 %; Platelet Count 250 10^3/uL (130-400); RBC 4.89 10^6/uL (4.36-5.78); RDW 12.8 % (11.8-14.1); RDW-SD 39.8 fL
[2019-12-28 12:40] LABS: PTT Activated 23.7 sec (21.0-31.4); Prothrombin Time 9.9 sec (9.3-11.0)
[2019-12-28 12:42] LABS: ALT 55 U/L (16-63); AST 25 U/L (15-37); Alkaline Phosphatase 96 U/L (46-116); Anion Gap 10.9 mmol/L (3-11); BUN 13 mg/dL (7-18); Bilirubin, Total 0.5 mg/dL (0.2-1.0); CO2 23.1 mmol/L (21.0-32.0); CREATININE 0.87 mg/dL (0.70-1.30); Calcium 9.3 mg/dL (8.5-10.1); Chloride 105 mmol/L (98-107); Glucose 158 mg/dL (74-106); Magnesium 1.6 mg/dL (1.8-2.4); Potassium 4.2 mmol/L (3.5-5.1); Sodium 139 mmol/L (136-145); Total Protein 7.3 g/dL (6.4-8.2)
[2019-12-28 12:43] LABS: Troponin I < 0.05 ng/mL (<0.06)
[2019-12-28] MEDS: Omnipaque 350 MG/ML 100 ML BTL IJ (13:06)
[2019-12-28] MEDS: Normal Saline - Diluent 50 ML VIAL IV (13:08)
[2019-12-28] MEDS: MAGNESIUM SULFATE 1 GM/100 ML BAG IVPB (13:15)
--- NOTE | 2019-12-28 13:15 | DI.CT_ITS ---
EXAM: CT CHEST PE CTA CLINICAL HISTORY: chest pain, sob, r/o acute disease. TECHNIQUE: Imaging Protocol: Axial CT angiography was performed with multi-slice acquisition and mu lti-planar and/or 3D reconstructions. CONTRAST MATERIAL: Intravenous: Omnipaque 350 Contrast volume:100 mL COMPARISON: CT CT ABDOMEN WO/W from 07/03/2018 FINDINGS: Pulmonary Arteries: No evidence of filling defect to suggest pulmonary emboli. Tracheobronchial tree: Patent where visualized. Mediastinum and Debbie: No dominant adenopathy or fluid collection. Pulmonary parenchyma: No consolidation or dominant measurable mass. No architectural distortion. Pleura: No effusion or pneumothorax. Heart: The heart is not dilated. Mild coronary artery calcification. No significant pericardial effu yesica. Aorta: Thoracic aorta non-dilated. Atherosclerosis. Upper abdomen: Unremarkable. Bones: Normal. Soft tissues: Unremarkable. IMPRESSION: 1. No evidence of a pulmonary embolus. 2. No acute pulmonary process. 3. Findings were discussed with the emergency department on the date of the examination. RADIATION DOSE DELIVERED: 435.29mGy.cm Total DLP DATA REPOSITORY: All CT scans at this facility are submitted to the National Radiology Data Registry (NRDR) Dose Index Registry (DIR) with the [employer] (A[employer]). RADIATION OPTIMIZATION: All CT scans at this facility use at least one of these dose optimization te chniques: automated exposure control; mA and/or kV adjustment per patient size (includes targeted exa ms where dose is matched to clinical indication); or iterative reconstruction.
[2019-12-28] MEDS: Normal Saline 500 ML IV ×2 (13:16→15:24)
--- NOTE | 2019-12-28 13:45 | RT.EKG_ITS ---
APPROVED REPORT Exam: Resting ECG Patient Location: E HR:63 bpm ECG Measurements Heart Rate 63 AXIS GA 205 P 64 QRSd 108 QRS -14 QT 410 T 62 QTc 419 Conclusion Sinus rhythm...normal P axis, V-rate 60- 99. I have reviewed and interpreted ECG and agree with software generated interpretation.
[2019-12-28 13:56] LABS: Bilirubin Negative (Negative); Blood Negative (Negative); Clarity Clear (Clear); Glucose 500 mg/dL (Negative); Ketones Negative (Negative); Leukocyte Esterase Negative (Negative); Nitrite Negative (Negative); Specific Gravity 1.015 (1.005-1.025); Urobilinogen 0.2 EU/dL (Up TO 0.2)
[2019-12-28 14:05] LABS: Bacteria Negative HPF (Negative); C & S Indicated? No; Casts Negative LPF (Negative); Crystals Negative HPF (Negative); Epithelial Cells Rare HPF (Negative); Mucus Trace (Negative); RBC 0-2 HPF (0-2); WBC 0-2 HPF (0-5)
[2019-12-28 15:46] LABS: Troponin I < 0.05 ng/mL (<0.06)
[2019-12-28] MEDS: Isosorbide Mononitrate 30 MG TABCR PO (16:59)
== END 2019-12-28 17:05 | disposition home or self-care (01) ==
PROVIDERS: Emergency Provider Physician Assistant; PCP Family Medicine
DX: R07.89 Other chest pain (principal); R53.83 Other fatigue; E83.42 Hypomagnesemia; Z95.5 Presence of coronary angioplasty implant and graft; I10 Essential (primary) hypertension; E11.9 Type 2 diabetes mellitus without complications; Z79.84 Long term (current) use of oral hypoglycemic drugs
CPT/HCPCS: 36415; 71275; 80053; 93005; 96361; 96365; 99285; 81003; 81015; 83735; 84484; 85025; 85610; 85730; 93010; J3475; J3490

== ENCOUNTER 2020-03-17 04:44 | Outpatient (CLI) | payer OTHER, SELFPAY ==
[2020-03-17 13:01] LABS: Calculated LDL 54 mg/dL (<100); Cholesterol 113 mg/dL (<200); HDL Cholesterol 31 mg/dL (40-60); Magnesium 1.7 mg/dL (1.8-2.4); Triglyceride 144 mg/dL (<150)
[2020-03-17 14:07] LABS: Hemoglobin A1C 7.4 % (<5.7)
== END 2020-03-17 05:04 ==
PROVIDERS: PCP Family Medicine; Visit Provider Family Medicine
DX: E78.5 Hyperlipidemia, unspecified (principal); R73.9 Hyperglycemia, unspecified; E83.42 Hypomagnesemia
CPT/HCPCS: 36415; 80061; 83036; 83735

== ENCOUNTER 2020-12-13 03:57 | Outpatient (CLI) | payer OTHER, SELFPAY ==
[2020-12-13 12:57] LABS: Anion Gap 12.4 mmol/L (3-11); BUN 16 mg/dL (7-18); CO2 22.6 mmol/L (21.0-32.0); CREATININE 1.1 mg/dL (0.70-1.30); Calcium 9.1 mg/dL (8.5-10.1); Chloride 107 mmol/L (98-107); Glucose 125 mg/dL (74-106); Potassium 4.4 mmol/L (3.5-5.1); Sodium 142 mmol/L (136-145)
[2020-12-13 12:59] LABS: Magnesium 1.7 mg/dL (1.8-2.4)
[2020-12-13 13:02] LABS: Hemoglobin A1C 7.9 % (<5.7)
== END 2020-12-13 03:58 | disposition home or self-care (01) ==
LOC: LOS 03:57
PROVIDERS: PCP Family Medicine; Visit Provider Family Medicine
DX: E83.42 Hypomagnesemia (principal); E11.9 Type 2 diabetes mellitus without complications; E87.1 Hypo-osmolality and hyponatremia
CPT/HCPCS: 36415; 80048; 83036; 83735

== ENCOUNTER 2021-01-30 15:08 | Outpatient (CLI) | payer OTHER, SELFPAY ==
--- NOTE | 2021-01-30 15:00 | RT.EKG_ITS ---
APPROVED REPORT Exam: Resting ECG Reason for Exam: SOB Patient Location: O HR:77 bpm ECG Measurements Heart Rate 77 AXIS GA 193 P 35 QRSd 107 QRS -3 QT 378 T 54 QTc 427 Conclusion Sinus rhythm...normal P axis, V-rate 60- 99
== END 2021-01-30 15:09 | disposition home or self-care (01) ==
LOC: DI.CM 15:08
PROVIDERS: PCP Family Medicine; Visit Provider Family Medicine
DX: I25.10 Atherosclerotic heart disease of native coronary artery without angina pectoris (principal)
CPT/HCPCS: 93010

== ENCOUNTER 2021-01-30 16:09 | Outpatient (REF) | payer OTHER, SELFPAY ==
[2021-01-30 21:08] LABS: Bilirubin Negative (Negative); Blood Moderate (Negative); Clarity Sl Cloudy (Clear); Glucose Negative (Negative); Ketones Negative (Negative); Leukocyte Esterase Moderate (Negative); Nitrite Negative (Negative); Specific Gravity 1.015 (1.005-1.025); Urobilinogen 0.2 EU/dL (Up TO 0.2); pH 6.5 (5-8)
[2021-01-30 21:17] LABS: WBC >50 HPF (0-5)
[2021-01-30 21:18] LABS: Bacteria Packed HPF (Negative); C & S Indicated? Yes; Mucus Trace (Negative)
== END 2021-01-30 16:10 | disposition home or self-care (01) ==
LOC: LBN 16:09
PROVIDERS: PCP Family Medicine; Visit Provider Family Medicine
DX: R31.9 Hematuria, unspecified (principal)
CPT/HCPCS: 87077; 81003; 81015; 87086; 87186

== ENCOUNTER 2021-07-23 01:02 | Outpatient (CLI) | payer OTHER, SELFPAY ==
--- NOTE | 2021-07-23 07:15 | DI.NM_ITS ---
APPROVED REPORT Exam: Exercise Treadmill Patient Location: Out-Patient Room/Bed: Stress Nurse: China Dee RN Ordering Provider:JODEE MAYO, Contact Number: [phone] BMI: 33.20 Baseline Rhythm: Sinus Rhythm Indications: Chest pain, history of CAD Medical History Medical History: Hypertension, hyperlipidemia, diabetes, CAD, gerd, ETOH abuse Cardiac Medications: Metoprolol succinate, metformin, rosuvastatin, isosorbide mononitrate, losartan, semaglutide, nitroglycerin SL Allergies: Penicillin, HCTZ, zolpidem, amlodipine, adhesives Cardiac Risk Factors: Hypertension, hyperlipidemia, diabetes, smoker (former), CVD, family hx Previous Cardiac Procedures: NSTEMI w/ JUAN to LAD (Nov 2019) Pretest Chest Pain Characteristics: None Exercise History: Sedentary Physical Disabilities: None Lung Sounds: Clear to auscultation Heart Sounds: Regular Stress Test Details Test: Exercise stress testing was performed using a Philip protocol. Nuclear Acquisition: Rest Tc-99m/Stress Tc-99m 1 day Rest Isotope: Tc-99m Sestamibi. Dose: 10.7 Date: 07/23/2021 Injection Time: 0850 Stress Isotope: Tc-99m Sestamibi. Dose: 33.3 Date: 07/23/2021 Injection Time: 1020 HR Resting HR Supine: 73 bpm Max Heart Rate (APMHR): 158.356493 bpm Resting HR Standin bpm Target HR (85% APMHR): 134.473231 bpm Max HR Achieved: 145 bpm % of APMHR: 91.77 Recovery HR: 86 bpm HR response to stress: Normal HR response to stress BP Resting BP Supine: 112/62 mmHg Resting BP Standin/68 mmHg Max BP: 160/82 mmHg Recovery BP: 132/78 mmHg BP response to stress: Normal blood pressure response to stress. ECG Resting ECG: Sinus Rhythm Ectopy: None Stress ECG: Sinus Tachycardia, , Clear, Sinus Rhythm, Sinus Bradycardia, Sinus Tachycardia ST Change: No significant ST segment changes noted Arrhythmia: Rare PVCs Recovery ECG: Sinus Rhythm, Sinus Arrhythmia Recovery ST Change: No significant ST segment changes noted Clinical Reason for Termination: Fatigue, Dyspnea Stress Symptoms: General Fatigue, Dyspnea Exercise duration: 5 min46 sec Highest Stage Reached: Stage 2: 2.5 mph at 12% grade. Exercise capacity: 7.05 METs Kim Treadmill Score: 5.5 Rate Pressure Product: [id number] Stress ECG Conclusion 1. Resting electrocardiogram showed poor R wave progression 2. Patient exercised on the Philip protocol and completed a workload of 7.05 METS, stopping due to fat igue 3. Normal hemodynamic response to exercise. Patient achieved 91% of predicted heart rate for age 4. There was no electrocardiographic evidence of myocardial ischemia 5. Rare PVCs seen Ikm Treadmill Score is 5.5 which is Low risk. Stress Test Summary STAGE Time (mins) Speed (mph) Grade (%) HR BP SYMPTOMS METS Supine 73 112/62 Standing 98 112/68 SpO2 97% 1 3 1.7 10 122 132/72 Mild SOB, SpO2 97% 4.6 2 6 2.5 12 143 Severe SOB, SpO2 95% 7 1 min recovery 136 148/70 Moderate SOB, SpO2 96% 3 min recovery 74 160/82 SOB resolved, SpO2 98% 6 min recovery 86 132/78 SpO2 97% MPI Conclusion Normal myocardial perfusion without evidence of ischemia or prior infarction EF 65%, normal wall motion Radiologist Interpretation Radiologist agrees with Polysomnograph Tech's Interpretation. Radiologist Interpretation by: Florence Tang MD Interpretation Date/Time: 07/23/2021 15:51:44
== END 2021-07-23 01:22 ==
PROVIDERS: PCP Family Medicine; Visit Provider Internal Medicine Cardiovascular Disease
DX: I25.10 Atherosclerotic heart disease of native coronary artery without angina pectoris (principal); R07.89 Other chest pain
CPT/HCPCS: 78452; 93017

== ENCOUNTER 2021-12-18 16:44 | Outpatient (REF) | payer OTHER, SELFPAY ==
[2021-12-18 22:34] LABS: Albumin ug/mg Crea 238 (<30); Albumin, Ur 26.6 mg/dL (See Note); Creatinine, Ur 111.6 mg/dL (See Note)
== END 2021-12-18 16:45 | disposition home or self-care (01) ==
LOC: LBN 16:44
PROVIDERS: PCP Family Medicine; Visit Provider Family Medicine
DX: E11.9 Type 2 diabetes mellitus without complications (principal)
CPT/HCPCS: 82043; 82570

== ENCOUNTER 2022-06-12 08:52 | Outpatient (CLI) | payer OTHER, SELFPAY ==
[2022-06-12 12:51] LABS: CREATININE 0.9 mg/dL (0.70-1.30); Cholesterol 102 mg/dL (<200); Estimated GFR 95.97 (mL/min/1.73m2); Potassium 3.9 mmol/L (3.5-5.1); Triglyceride 144 mg/dL (<150)
[2022-06-12 13:09] LABS: Calculated LDL 37 mg/dL (<100); HDL Cholesterol 37 mg/dL (40-60)
== END 2022-06-12 08:53 | disposition home or self-care (01) ==
LOC: LOS 08:52
PROVIDERS: PCP Family Medicine; Visit Provider Family Medicine
DX: I10 Essential (primary) hypertension (principal); E78.5 Hyperlipidemia, unspecified; E11.9 Type 2 diabetes mellitus without complications; M25.552 Pain in left hip; R32 Unspecified urinary incontinence; R30.0 Dysuria
CPT/HCPCS: 36415; 80061; 82043; 82565; 82570; 84132; 87086

== ENCOUNTER 2022-06-12 17:24 | Outpatient (REF) | payer OTHER, SELFPAY ==
[2022-06-12 13:37] LABS: COMMENT (LAB VIEW ONLY) 109.92 mg/dL; Microalb ug/mg Crea 85.2 ug/mg Cr
== END 2022-06-12 17:25 | disposition home or self-care (01) ==
LOC: LBN 17:24
PROVIDERS: PCP Family Medicine; Visit Provider Family Medicine
DX: E11.9 Type 2 diabetes mellitus without complications (principal); N39.41 Urge incontinence; I10 Essential (primary) hypertension
CPT/HCPCS: 87077; 82043; 82570; 87086; 87186

== ENCOUNTER 2022-07-10 11:33 | Outpatient (REF) | payer OTHER, SELFPAY | END 2022-07-10 11:34 | disposition home or self-care (01) | LOC: LBN 11:33 | PROVIDERS: PCP Family Medicine; Visit Provider Family Medicine | DX: N39.0 Urinary tract infection, site not specified (principal) | CPT/HCPCS: 87086 ==

== ENCOUNTER 2022-11-07 18:15 | Outpatient (REF) | payer OTHER, SELFPAY ==
[2022-11-07 22:49] LABS: PSA, Screening 1.7 ng/mL (<=4.5)
== END 2022-11-07 18:16 | disposition home or self-care (01) ==
LOC: NCHCN 18:15
PROVIDERS: PCP Family Medicine; Visit Provider Nurse Practitioner Gerontology
DX: N40.1 Benign prostatic hyperplasia with lower urinary tract symptoms (principal); Z12.5 Encounter for screening for malignant neoplasm of prostate; N39.41 Urge incontinence
CPT/HCPCS: 84153

== ENCOUNTER 2022-12-25 08:08 | Outpatient (CLI) | payer OTHER, SELFPAY ==
[2022-12-25 12:54] LABS: TSH (W/Ref FT4) 2.25 uIU/mL (0.36-3.74); Vitamin B12 486 pg/mL (193-986)
[2022-12-26 10:19] LABS: Syphilis Serology (RPR) Negative (Negative)
== END 2022-12-25 08:09 | disposition home or self-care (01) ==
LOC: LOS 08:08
PROVIDERS: PCP Family Medicine; Referring Provider Family Medicine; Visit Provider Family Medicine
DX: D64.9 Anemia, unspecified (principal); E03.9 Hypothyroidism, unspecified; R41.3 Other amnesia
CPT/HCPCS: 36415; 82607; 84443; 86592

== ENCOUNTER 2023-04-01 08:44 | Outpatient (CLI) | payer OTHER, SELFPAY ==
--- NOTE | 2023-04-01 08:30 | RT.EKG_ITS ---
APPROVED REPORT Exam: Resting ECG Reason for Exam: CAD Patient Location: O HR:65 bpm ECG Measurements Heart Rate 65 AXIS WV 206 P 67 QRSd 108 QRS -28 QT 406 T 35 QTc 423 Conclusion Sinus rhythm...normal P axis, V-rate 50- 99 Borderline left axis deviation...QRS axis (-15,-29) I have reviewed and interpreted ECG and agree with software generated interpretation.
== END 2023-04-01 08:45 | disposition home or self-care (01) ==
LOC: DI.CARD 08:46
PROVIDERS: PCP Family Medicine; Visit Provider Internal Medicine Interventional Cardiology
DX: I25.10 Atherosclerotic heart disease of native coronary artery without angina pectoris (principal)
CPT/HCPCS: 93010

== ENCOUNTER 2023-06-17 10:06 | Outpatient (REF) | payer OTHER, SELFPAY ==
[2023-06-17 14:25] LABS: COMMENT (LAB VIEW ONLY) 166.41 mg/dL
[2023-06-17 14:54] LABS: Microalb ug/mg Crea 89.4 ug/mg Cr
== END 2023-06-17 10:07 | disposition home or self-care (01) ==
LOC: LBN 10:06
PROVIDERS: PCP Family Medicine; Visit Provider Family Medicine
DX: E11.9 Type 2 diabetes mellitus without complications (principal)
CPT/HCPCS: 82043; 82570

== ENCOUNTER 2023-06-25 05:09 | Outpatient (CLI) | payer OTHER, SELFPAY ==
[2023-06-25 12:38] LABS: Estimated GFR 84.05 (mL/min/1.73m2)
== END 2023-06-25 05:10 | disposition home or self-care (01) ==
LOC: LOS 05:09
PROVIDERS: PCP Family Medicine; Visit Provider Family Medicine
DX: I10 Essential (primary) hypertension (principal)
CPT/HCPCS: 36415; 82565; 84132

== ENCOUNTER 2024-02-09 00:56 | Outpatient (CLI) | payer OTHER, SELFPAY ==
--- NOTE | 2024-02-09 07:15 | DI.NM_ITS ---
APPROVED REPORT Exam: Pharmacologic Patient Location: Out-Patient Room/Bed: Stress Nurse: Zora Taylor RN Ordering Provider:JACQUES ARBOLEDA, Contact Number: [phone] BMI: 31.63 Baseline Rhythm: Sinus Rhythm Indications: chest pain Medical History Medical History: DM, CP, CAD, depression, GERD, HTN, HLD, hx of smoking, malignant melanoma, ETOH abu se Cardiac Medications: nitroglycerin, aspirin, losartan, metoprolol succinate, rosuvastatin, metformin, jardiance, disulfiram, semaglutide, pregabalin Allergies: adhesive, penicillins, HCTZ, zolpidem, amlodipine Cardiac Risk Factors: family hx, diabetes, HTN, HLD, previous smoker Previous Cardiac Procedures: stent 2019 Pretest Chest Pain Characteristics: No chest pain Exercise History: Indeterminate Physical Disabilities: Knees Lung Sounds: Clear to auscultation Heart Sounds: Regular Stress Test Details Test: Pharmacologic stress testing performed using 0.4 mg of regadenoson per 5 mL given IV over 10 s econds. Reason for pharmacologic stress test: physical limitation. Nuclear Acquisition: Rest Tc-99m/Stress Tc-99m 1 day Rest Isotope: Tc-99m Sestamibi. Dose: 10.0 Date: 02/09/2024 Injection Time: 0845 Stress Isotope: Tc-99m Sestamibi. Dose: 30.0 Date: 02/09/2024 Injection Time: 1036 HR Resting HR Supine: 67 bpm Max Heart Rate (APMHR): 155.231595 bpm Target HR (85% APMHR): 131.579978 bpm Max HR Achieved: 76 bpm % of APMHR: 49.03 Recovery HR: 68 bpm BP Resting BP Supine: 118/72 mmHg Max BP: 124/76 mmHg Recovery BP: 114/70 mmHg ECG Resting ECG: Sinus Rhythm Ectopy: none Stress ECG: Sinus Rhythm ST Change: Nondiagnostic low heart rate Arrhythmia: None Recovery ECG: Sinus Rhythm Recovery ST Change: Nondiagnostic low heart rate Recovery Arrhythmia: None Clinical Stress Symptoms: SOB Angina Score: None Rate Pressure Product: 9424 Stress ECG Conclusion 1. Resting electrocardiogram was normal 2. Patient underwent testing using pharmacologic stress with regadenoson 3. Peak heart rate achieved was 49% of maximal predicted for age 4. The electrocardiographic portion of the test was nondiagnostic 5. See MPI report Stress Test Summary STAGE HR BP SpO2 Symptoms NOTES Supine 67 118/72 94 1 min post Lexiscan injection 73 120/80 92 moderate SOB 3 min post Lexiscan injection 73 124/76 mild SOB 6 min post Lexiscan injection 68 114/70 97 SOB resolved MPI Conclusion Myocardial perfusion is normal. There is no ischemia or evidence of prior infarction Ejection fraction is 57% with normal wall motion Radiologist Interpretation Radiologist Interpretation by: Wilson Aiken MD Interpretation Date/Time: 02/09/2024 16:06:13
[2024-02-09] MEDS: Regadenoson 0.4 MG/5 ML SYR IVP (10:36)
== END 2024-02-09 01:16 ==
PROVIDERS: PCP Family Medicine; Visit Provider Family Medicine
DX: R07.9 Chest pain, unspecified (principal)
CPT/HCPCS: 78452; 93017; J2785

== ENCOUNTER 2024-02-09 20:12 | Emergency (ER) | payer OTHER, SELFPAY ==
[2024-02-09 20:17] VITALS: BP 133/75; PULSE 89; RESP 16; TEMP 36.8; O2SAT 95
--- OUTSIDE RECORDS SUMMARY | 2024-02-09 20:24 | XMS_ITS | Encounter Summary ---
Author Organization [facility] Address [address] [place] [address] Care Team Providers Care Office Assistant Receptionist Name Role Phone Unknown, Provider Primary Care Provider Unava ilable Encounter Details Date Type Department Care Team (Latest Contact Info) Description 05/24/2015 15:37 EST - 05/24/2015 23:59 EST Hospital Encounter [address] [address] Unknown, ProviderMD Discharge Disposition: Home or Self Care Social History Tobacco Use Types Packs/Day Years Used Date Smoking Tobacco: Never Assessed Sex and Gender Information Value Date Recorded Sex Assigned at Not on file Gender Identity Not on file Sexual Orientation Not on file documented as of this encounter Discharge Disposition Disposition Code Departure Means Destination Home or Self Halfway documented in this encounter Plan of Treatment Not on file documented as of this encounter Visit Diagnoses Not on filedocumented in this encounter Care Teams Office Assistant Receptionist Relationship Specialty Start Date End Date Unknown, ProviderMD PCP - General 11/09/12 documented as of this encounter
--- OUTSIDE RECORDS SUMMARY | 2024-02-09 20:24 | XMS_ITS | Clinical Summary ---
Author Organization [facility] Address [address] [place] [address] Care Team Providers Care Security Shift Manager Name Role Phone Unknown, Provider Primary Care Provider Unava ilable Social History Tobacco Use Types Packs/Day Years Used Date Smoking Tobacco: Never Assessed Sex and Gender Information Value Date Recorded Sex Assigned at Not on file Gender Identity Not on file Sexual Orientation Not on file Plan of Treatment Health Maintenance Due Date Last Done Comments Hepatitis C Screen 1960 RSV Immunization ( o r 60+ Years) (1 - 1-dose 60+ series) 2018 COVID-19 Vaccine (2022-24 season) 2022 Fall Risk Screening 09/19/2023 Care Teams Security Shift Manager Relationship Specialty Start Date End Date Unknown, Provider, PCP - General 11/09/12
--- OUTSIDE RECORDS SUMMARY | 2024-02-09 20:24 | XMS_ITS | Encounter Summary ---
Author Organization [facility] Address [address] [place] [address] Care Team Providers Care Double End Tenoner Setter Name Role Phone Unknown, Provider Primary Care Provider Unava ilable Encounter Details Date Type Department Care Team (Late st Contact Info) Description 05/24/2015 Results Only [facility] [phone] Jessica Branch MD [address] [place] [address] [place] [address] Social History Tobacco Use Types Packs/Day Years Used Date Smoking Tobacco: Never Assessed Sex and Gender Information Value Date Recorded Sex Assigned at Not on file Gender Identity Not on file Sexual Orientation Not on file documented as of this encounter Plan of Treatment Not on file documented as of this encounter Procedures Procedure Name Priority Date/Time Associated Diagnosis Comments SURGICAL PATHOLOGY Routine 05/24/2015 8:46 EST documented in this encounter Results * SURGICAL PATHOLOGY (05/24/2015 8:46 EST) Pathology Report: SURGICAL PATHOLOGY REPORT Reports generated via electronic interface contain original data; however they are lacking the format of the original report. Caution should be taken when reading/interpret ing unformatted reports. Name: ? LAYLA TRIPP ? Accession #: ? [id number] ? : ? 1960 (Age: 54) ??M ? Collect Date: ? 05/24/2015 ? Location: ? [facility] ? Receive Date: ? 05/25/2015 ? Provider: JESSICA BRANCH MD Copy to: JUWAN SEVILLA DO ? Final Pathologic Diagnosis: SOFT TISSUE OF HAND, RIGHT PALM, EXCISIONAL BIOPSY: - ??Meade fibromatosis (Dupuytren's contracture). Document reviewed and electronically signed by: TAWANA ALONSO MD Report ??Date: 05/26/2015 12:59 By the signature above, the attending physician certifies that he/she has personally conducted a gross and/or microscopic examination of the described specimens and rendered or confirmed the above diagnosis. Specimen(s) Received: Nodule right palm Clinical History: Nodule right palm (nodular fasciitis) Gross Description: ? Received in formalin labelled with proper patient identification (initials M, R) and nodule right palm are two garcia-white unoriented fibrous soft tissue fragments (0.4 x 0.3 x 0.2 cm and 1.2 x 1.0 x 0.4 cm). The cut surfaces of the larger tissue reveal a back-white indurated 0.5 x 0.4 x 0.3 cm lesion which abuts the nearest inked margin. Both specimens are inked and are entirely submitted as 1 (smaller tissue intact) and 2 (larger tissue trisected). Silvia Barney 05/25/2015 9:02 AM End of Report [facility] 05/24/2015 8:46 EST 05/25/2015 8:46 EST Jessica Branch MD PATHOLOGY ORDERABLES [facility] [address] [place] [address] documented in this encounter Visit Diagnoses Not on filedocumented in this encounter Care Teams Double End Tenoner Setter Relationship Specialty Start Date End Date Unknown, Provider, PCP - General 11/09/12 documented as of this encounter
--- OUTSIDE RECORDS SUMMARY | 2024-02-09 20:24 | XMS_ITS | Encounter Summary ---
Author Organization [facility] Address [address] [place] [address] Care Team Providers Care Market Investigator Name Role Phone Unknown, Provider Primary Care Provider Unava ilable Encounter Details Date Type Department Care Team (Late st Contact Info) Description 12/25/2022 Lab Requisition [facility] Pathology & Laboratory Medicine - [facility] [address] [place], [place] [address] Outr Resulting Lab, Provider Social History Tobacco Use Types Packs/Day Years Used Date Smoking Tobacco: Never Assessed Sex and Gender Information Value Date Recorded Sex Assigned at Not on file Gender Identity Not on file Sexual Orientation Not on file documented as of this encounter Plan of Treatment Not on file documented as of this encounter Procedures Procedure Name Priority Date/Time Associated Diagnosis Comments SYPHILIS SEROLOGY Routine 12/25/2022 8:22 EDT documented in this encounter Results * SYPHILIS SEROLOGY (12/25/2022 8:22 EDT) Syphilis Serology Negative Negative 12/26/2022 10:14 EDT [facility] Blood VENOUS BLOOD / Unknown 12/25/2022 8:22 EDT 12/25/2022 17:26 EDT Provider Outr Resulting Lab IMMUNOLOGY A ND SEROLOGY ORDERABLES [facility] [address] [place] [address] documented in this encounter Visit Diagnoses Not on filedocumented in this encounter Care Teams Market Investigator Relationship Specialty Start Date End Date Unknown, Provider, PCP - General 11/09/12 documented as of this encounter
--- OUTSIDE RECORDS SUMMARY | 2024-02-09 20:24 | XMS_ITS | Encounter Summary ---
Author Organization [facility] Address [address] [place] [address] Care Team Providers Care Nurse Ob Name Role Phone Unavailable Primary Care Provider Unavailabl e Encounter Details Date Type Department Care Team (Late st Contact Info) Description 01/29/2008 Before PRISM Converted Visit ([facility]) [facility] - [facility] conversion [address] [place] [address] Wenceslao Vega, DO [address] [place], [place] [id number] Social History Tobacco Use Types Packs/Day Years Used Date Smoking Tobacco: Never Assessed Sex and Gender Information Value Date Recorded Sex Assigned at Not on file Gender Identity Not on file Sexual Orientation Not on file documented as of this encounter Plan of Treatment Not on file documented as of this encounter Procedures Procedure Name Priority Date/Time Associated Diagnosis Comments SURGICAL PATHOLOGY Routine 01/29/2008 0:00 EDT documented in this encounter Results * SURGICAL PATHOLOGY (01/29/2008 0:00 EDT) Pathology Report: SURGICAL PATHOLOGY REPORT ? Reports generated via electronic interface contain original data; ? however they are lacking the format of the original report. ? Caution should be taken when reading/interpreting unformatted reports. ? Name: ? QASIM, LAYLA ? Accession #: ? [id number] ? : ? 1960 (Age: 47) ??M ? Collect Date: ? 01/29/2008 ? Location: ? [facility] ? Receive Date: ? 01/29/2008 ? Provider: WENCESLAO F ROEL DO ? Copy to: ? Final Pathologic Diagnosis: ? Skin of leg, left, punch biopsy: ? - Epidermal hyperplasia with overlying hyperkeratosis and reactive changes. See microscopic and ? comment. ? Comment: ? 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 ? Alternatively, the features could be consistent with a chronic eczematous ? process (such as nummular eczema) with superimposed changes of lichen simplex ?? chronicus. ??The keratinocytes show a mild degree of atypia with is interpreted ?? as reactive in nature. ??Clinical correlation is recommended. ??(Dr. Moffett)/tmg ? Microscopic Description: ? Sections consist of a punch biopsy to the deep reticular dermis. ??There is compacted parakeratosis with intracorneal serum overlying an epidermis showing ?? irregular hyperplasia. ??There is hypergranulosis. ??In areas, the rete ridges are widened. ??The individual keratinocytes show a mild degree of atypia including ?? small prominent nucleoli. ??Within the superficial dermis is a predominantly ? perivascular lymphomononuclear infiltrate which includes a rare eosinophil. ? (Dr. Moffett)/tmg ? Document reviewed and electronically signed by: ? LISSETTE MOFFETT MD ? Report ??Date: 02/02/2008 14:17 ? By the signature above, the attending physician certifies that he/she has ? personally conducted a gross and/or microscopic examination of the described ? specimens and rendered or confirmed the above diagnosis. ? Specimen(s) Received: ? Lt leg atypical skin lesion ? Clinical History: ? Not listed ? Gross Description: ? Received in formalin labelled Qasim and left leg is a mesa hair-bearing circular 0.3 cm skin punch excised to a depth of 0.3 cm. ??The specimen is ? entirely submitted in one cassette. ??(Jaron Almaraz/aileenk ? End of Report ? [facility] 01/29/2008 01/29/2008 8:2 0 EDT Wenceslao Vega DO PATHOLOGY ORDERABL ES [facility] [address] [place] [address] documented in this encounter Visit Diagnoses Not on filedocumented in this encounter
--- OUTSIDE RECORDS SUMMARY | 2024-02-09 20:24 | XMS_ITS | Encounter Summary ---
Author Organization [facility] Address [address] [place] [address] Care Team Providers Care Chief Service Dispatcher Name Role Phone Unavailable Primary Care Provider Unavailabl e Encounter Details Date Type Department Care Team (Late st Contact Info) Description 04/24/2007 Results Only [facility] - [facility] conversion [address] [place] [address] Wenceslao Vega F, DO [address] [place], [place] [id number] Social History Tobacco Use Types Packs/Day Years Used Date Smoking Tobacco: Never Assessed Sex and Gender Information Value Date Recorded Sex Assigned at Not on file Gender Identity Not on file Sexual Orientation Not on file documented as of this encounter Plan of Treatment Not on file documented as of this encounter Procedures Procedure Name Priority Date/Time Associated Diagnosis Comments SURGICAL PATHOLOGY Routine 04/24/2007 0:00 EST documented in this encounter Results * SURGICAL PATHOLOGY (04/24/2007 0:00 EST) Pathology Report: SURGICAL PATHOLOGY REPORT Reports generated via electronic interface contain original data; however they are lacking the format of the original report. Caution should be taken when reading/interpreting unformatted reports. Name: ? QASIMLAYLA ? Accession #: ? [id number] ? : ? 1960 (Age: 46) ??M ? Collect Date: ? 04/24/2007 ? Location: ? [facility] ? Receive Date: ? 04/24/2007 ? Provider: WENCESLAO VEGA DO Copy to: ? Final Pathologic Diagnosis: ? Skin of chest, left side, punch biopsy: 1. ?Malignant melanoma, superficial spreading type. ??See comment. ? - 0.78 mm in thickness, - Johnathon's level IV. - Non-ulcerated. - Lymphovascular invasion is absent. - Perineural invasion is absent. - Malignant melanoma extends to peripheral tissue edges. Comment: ? Dr. Breanna Lloyd has reviewed this case in consultation and concurs with the above diagnosis. ??(Dr. Guevara)/[facility] Microscopic Description: ? Immunohistochemical staining was performed on this case to further characterize the lesion. ??Positive and negative controls stained appropriately. (Dr. Guevara)/[facility] ? Antibody (Clone) ? Result ? MIB-1(Ki-67) (Rabbit Monoclonal (SP6), [facility]) ? MIB-1 index of 16% in the lesional ? melanocytic cells. NOTE: ??One or more of the reagents used in immunohistochemical testing in this case may not have been cleared or approved by the U.S. Food and Drug Administration (FDA). ??The FDA has determined that such clearance or approval is not necessary. ??These tests are used for clinical purposes. ??They should not be regarded as investigational or for research. ??These reagents' ??performance characteristics have been determined by [facility]. ??This laboratory is certified under the Clinical Laboratory Improvement Amendments of 1988 (CLIA-88) as qualified to perform high complexity clinical laboratory testing. ?? Document reviewed and electronically signed by: Qamar Guevara MD Report ??Date: 05/04/2007 16:43 By the signature above, the attending physician certifies that he/she has personally conducted a gross and/or microscopic examination of the described specimens and rendered or confirmed the above diagnosis. Specimen(s) Received: ? Chest (left side) Clinical History: ? Atypical lesion ? Gross Description: ? Received in formalin labelled Qasim and atypical lesion chest (left side) is a punch biopsy measuring 0.3 cm in diameter and 0.2 cm in thickness. The specimen is submitted intact in one cassette. ??(Dr. Rodriguez)/[place] End of Report [facility] 04/24/2007 04/24/2007 15: 19 EST Wenceslao Vega DO PATHOLOGY ORDERABL ES [facility] [address] [place] [address] documented in this encounter Visit Diagnoses Not on filedocumented in this encounter
--- OUTSIDE RECORDS SUMMARY | 2024-02-09 20:24 | XMS_ITS | Referral Summary ---
Author Organization [facility] Address [address] [place] [address] Care Team Providers Care Stack Clerk Name Role Phone Unknown, Provider Primary Care Provider Unava ilable Social History Tobacco Use Types Packs/Day Years Used Date Smoking Tobacco: Never Assessed Sex and Gender Information Value Date Recorded Sex Assigned at Not on file Gender Identity Not on file Sexual Orientation Not on file Plan of Treatment Not on file Care Teams Stack Clerk Relationship Specialty Start Date End Date Unknown, ProviderMD PCP - General 11/09/12
--- OUTSIDE RECORDS SUMMARY | 2024-02-09 20:24 | XMS_ITS | Encounter Summary ---
Author Organization [facility] Address [address] [place] [address] Care Team Providers Care Engineering Intern Name Role Phone Unknown, Provider Primary Care Provider Unava ilable Reason for Visit * Reason Onset Date Comments Medications Refill 02/25/2022 Encounter Details Date Type Department Care Team (Late st Contact Info) Description 02/25/2022 Refill [facility] [address] [place] [address] Lola Ledesma RN Medications Refill Social History Tobacco Use Types Packs/Day Years Used Date Smoking Tobacco: Never Assessed Sex and Gender Information Value Date Recorded Sex Assigned at Not on file Gender Identity Not on file Sexual Orientation Not on file documented as of this encounter Plan of Treatment Not on file documented as of this encounter Visit Diagnoses Not on filedocumented in this encounter Care Teams Engineering Intern Relationship Specialty Start Date End Date Unknown, Provider, PCP - General 11/09/12 documented as of this encounter
--- OUTSIDE RECORDS SUMMARY | 2024-02-09 20:24 | XMS_ITS | Encounter Summary ---
Author Organization [facility] Address [address] [place] [address] Care Team Providers Care Sheep Farm Worker Name Role Phone Unknown, Provider Primary Care Provider Unava ilable Encounter Details Date Type Department Care Team (Late st Contact Info) Description 11/07/2022 Lab Requisition [facility] Pathology & Laboratory Medicine - [facility] [address] [place], [place] [address] Outr Resulting Lab, Provider Social History Tobacco [...] Procedure Name Priority Date/Time Associated Diagnosis Comments PSA TOTAL, DIAGNOSTIC Routine 11/07/2022 10:00 EDT documented in this encounter Results * PSA TOTAL, DIAGNOSTIC (11/07/2022 10:00 EDT) PSA 1.7 <=4.5 ng/mL 11/07/2022 22:45 EDT [facility] Blood VENOUS BLOOD / Unknown 11/07/2022 10:00 EDT 11/07/2022 21:47 EDT Narrative [facility] - 11/07/2022 22:45 EDT NOTE: Serum PSA concentration should not be interpreted as absolute evidence for the presence or absence of malignant disease. Assayed on Siemens ADVIA Terrajouleaur XPT using chemiluminescent technology.??Values obtained by using different assay methods cannot be used interchangeably. Provider Outr Resulting Lab CHEMISTRY & BLOOD GAS ORDERABLES [facility] [address] [place] [address] documented in this encounter Visit Diagnoses Not on filedocumented in this encounter Care Teams Sheep Farm Worker Relationship Specialty Start Date End Date Unknown, Provider, PCP - General 11/09/12 documented as of this encounter
--- OUTSIDE RECORDS SUMMARY | 2024-02-09 20:24 | XMS_ITS | Encounter Summary ---
Author Organization [facility] Address [address] [place] [address] Care Team Providers Care Razor Grinder Name Role Phone Unknown, Provider Primary Care Provider Unava ilable Encounter Details Date Type Department Care Team (Late st Contact Info) Description 12/18/2021 Lab Requisition [facility] Pathology & Laboratory Medicine - [address] [address] Outr Resulting Lab, Provider Social History Tobacco [...] Procedure Name Priority Date/Time Associated Diagnosis Comments URINE [id number] NE RATIO (ACR) Routine 12/18/2021 8:10 EDT documented in this encounter Results * (ABNORMAL) URINE [id number] RATIO (ACR) (12/18/2021 8:10 EDT) Albumin, Urine 26.6 See Note mg/dL 2021 22:29 EDT [facility] Comment: NOTE: Reference range not established Creatinine, Urine 111.6 See Note mg/dL 12/18/2021 22:29 EDT [facility] Comment: NOTE: Reference range not established Lab Urine Albumin to Creatinine Ratio 238(H) <30 ??g/mg Creatinine 12/18/2021 22:29 EDT [facility] Comment: Urine Albumin/Creatinine Ratio: Normal: <30 ug/mg Creatinine Moderately increased albuminuria: 30-300 ug/mg Creatinine Meetley increased albuminuria: >300 ug/mg Creatinine Urine URINE SPECIMEN COLLECTION, CLEAN CATCH / Unknown 12/18/2021 8:10 EDT 12/18/2021 21:21 EDT Provider Outr Resulting Lab CHEMISTRY & BLOOD GAS ORDERABLES [facility] [address] [place] [address] documented in this encounter Visit Diagnoses Not on filedocumented in this encounter Care Teams Razor Grinder Relationship Specialty Start Date End Date Unknown, Provider, PCP - General 11/09/12 documented as of this encounter
--- OUTSIDE RECORDS SUMMARY | 2024-02-09 20:24 | XMS_ITS | Encounter Summary ---
Author Organization [facility] Address [address] [place] [address] Care Team Providers Care Oil Process Stillman Name Role Phone Unavailable Primary Care Provider Unavailabl e Encounter Details Date Type Department Care Team (Late st Contact Info) Description 03/02/2001 Results Only [facility] - [facility] conversion [address] [place] [address] Tushar Quevedo MD [address] [place] [phone] Social History Tobacco Use Types Packs/Day Years Used Date Smoking Tobacco: Never Assessed Sex and Gender Information Value Date Recorded Sex Assigned at Not on file Gender Identity Not on file Sexual Orientation Not on file documented as of this encounter Plan of Treatment Not on file documented as of this encounter Procedures Procedure Name Priority Date/Time Associated Diagnosis Comments SURGICAL PATHOLOGY Routine 03/02/2001 0:00 EST documented in this encounter Results * SURGICAL PATHOLOGY (03/02/2001 0:00 EST) Pathology Report: SURGICAL PATHOLOGY REPORT Reports generated via electronic interface contain original data; however they are lacking the format of the original report. Caution should be taken when reading/interpreting unformatted reports. Name: ? LAYLA TRIPP ? Accession #: ? [id number] ? : ? 1960 (Age: 40) ??M ? Collect Date: ? 03/02/2001 ? Location: ? [facility] ? Receive Date: ? 03/02/2001 ? Provider: XOCHITL QUEVEDO MD Copy to: JUWAN SEVILLA DO JUWAN RASHEED MD ? Final Pathologic Diagnosis: ? Esophagus, gastroesophageal junction, biopsy: ? - ??Squamous mucosa with chronic esophagitis and eosinophils consistent with gastroesophageal reflux disease. ??See comment. Comment: ? This case was reviewed at the intradepartmental consultation conference on 03/04/01. ??(Hadley Banks/[facility] Document reviewed and electronically signed by: ROBIN DELGADO MD Report ??Date: 03/04/2001 14:38 By the signature above, the attending physician certifies that he/she has personally conducted a gross and/or microscopic examination of the described specimens and rendered or confirmed the above diagnosis. Specimen(s) Received: ? EG jct Clinical History: ? HH, GERD Gross Description: ? Received in Hollande' s fixative labelled Qasim and EG junction are two irregularly shaped slightly lobular soft tissue fragments that measure 0.3 x 0.1 x 0.1 cm and 0.3 x 0.2 x 0.1 cm. ??The specimen is submitted entirely in one cassette. ??(Ailyn Daniel)/[place] End of Report [facility] 03/02/2001 03/02/2001 15: 22 EST Tushar Quevedo MD PATHOLOGY ORDERABLES NAIF RANDLE [address] [place] [address] documented in this encounter Visit Diagnoses Not on filedocumented in this encounter
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
[2024-02-09 20:44] VITALS: BP 136/78; PULSE 84; RESP 17; TEMP 36.6; O2SAT 98
== END 2024-02-09 20:44 | disposition home or self-care (01) ==
PROVIDERS: Emergency Provider Emergency Medicine; PCP Family Medicine
DX: S60.512A Abrasion of left hand, initial encounter (principal); X58.XXXA Exposure to other specified factors, initial encounter
CPT/HCPCS: 99281; 99282

== ENCOUNTER 2024-02-11 02:03 | Outpatient (CLI) | payer OTHER, SELFPAY ==
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
== END 2024-02-11 02:23 ==
PROVIDERS: PCP Family Medicine; Visit Provider Nurse Practitioner Family
DX: S67.197D Crushing injury of left little finger, subsequent encounter (principal); W01.0XXD Fall on same level from slipping, tripping and stumbling without subsequent striking against object, subsequent encounter; S60.512D Abrasion of left hand, subsequent encounter
CPT/HCPCS: 73140

== ENCOUNTER 2024-11-19 08:38 | Outpatient (CLI) | payer OTHER, SELFPAY ==
--- NOTE | 2024-11-19 08:30 | RT.EKG_ITS ---
APPROVED REPORT Exam: Resting ECG Reason for Exam: follow up Patient Location: O HR:68 bpm ECG Measurements Heart Rate 68 AXIS SD 203 P 44 QRSd 108 QRS -21 QT 399 T 50 QTc 425 Conclusion Sinus rhythm...normal P axis, V-rate 50- 99 Borderline left axis deviation...QRS axis (-15,-29)
== END 2024-11-19 08:39 | disposition home or self-care (01) ==
LOC: DI.CARD 08:40
PROVIDERS: PCP Family Medicine; Visit Provider Internal Medicine Cardiovascular Disease
DX: R07.89 Other chest pain (principal); I25.10 Atherosclerotic heart disease of native coronary artery without angina pectoris; I10 Essential (primary) hypertension
CPT/HCPCS: 93010

== ENCOUNTER 2024-11-25 08:21 | Outpatient (CLI) | payer OTHER, SELFPAY ==
[2024-11-25 13:02] LABS: Anion Gap 12.3 mmol/L (3-11); BUN 15 mg/dL (7-18); CO2 23.7 mmol/L (21.0-32.0); Calcium 8.5 mg/dL (8.5-10.1); Chloride 108 mmol/L (98-107); Estimated GFR 101.62 (mL/min/1.73m2); Glucose 123 mg/dL (74-106); Potassium 4.1 mmol/L (3.5-5.1); Sodium 144 mmol/L (136-145)
[2024-11-25 18:17] LABS: PSA, Screening 2.2 ng/mL (<=4.5)
== END 2024-11-25 08:22 | disposition home or self-care (01) ==
LOC: LOS 08:21
PROVIDERS: Nurse Practitioner Gerontology; PCP Family Medicine; Referring Provider Family Medicine; Visit Provider Family Medicine
DX: R39.9 Unspecified symptoms and signs involving the genitourinary system (principal); N39.41 Urge incontinence; N40.0 Benign prostatic hyperplasia without lower urinary tract symptoms; E87.1 Hypo-osmolality and hyponatremia
CPT/HCPCS: 36415; 80048; 84153